=== PATIENT | male | born 1975 | race Caucasian/White ===

== ENCOUNTER 2019-12-13 17:35 | Inpatient (IN) | payer OTHER ==
[2019-12-13 17:58] VITALS: BMI 32.5
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
[2019-12-13] MEDS ORDERED: hydrOXYzine PAMOATE 25 MG CAPSULE (FP) PO PRN (18:58)
[2019-12-13] MEDS ORDERED: MAGNESIUM CITRATE 300 ML BOTTLE PO PRN (18:58)
[2019-12-13] MEDS ORDERED: MELATONIN 5 MG TABLETS PO PRN (18:58)
[2019-12-13] MEDS ORDERED: ACETAMINOPHEN 325 MG TABLET (FP) PO PRN ×2 (18:58)
[2019-12-13] MEDS ORDERED: METHOCARBAMOL 500 MG TABLET PO PRN (18:58)
[2019-12-13] MEDS ORDERED: PROCHLORPERAZINE MALEATE 5 MG TABLET PO PRN (18:58)
[2019-12-13] MEDS ORDERED: BISMUTH SUBSALICYLATE 524 MG/30 ML UD PO PRN (18:58)
[2019-12-13] MEDS ORDERED: MAGNESIUM HYDROX 2400MG/30ML ORAL SUSPENSION 30 ML CUP PO PRN (18:58)
[2019-12-13] MEDS ORDERED: MENTHOL/PHENOL 1 EACH UD MM PRN (18:58)
[2019-12-13] MEDS ORDERED: ALBUTEROL SO4 2.5/IPRATROPIUM 0.5 INH SOL 3 ML VIAL.NEB. NEB PRN (18:58)
[2019-12-13] MEDS ORDERED: MAG HYDROX/AL HYDROX/SIMETH 30 ML UNIT-DOSE CUP PO PRN (18:58)
[2019-12-13] MEDS ORDERED: NICOTINE POLACRILEX 2 MG GUM BUC PRN (18:58)
[2019-12-13] MEDS ORDERED: ALBUTEROL SO4 HFA INHALER IH PRN (18:58)
[2019-12-13] MEDS ORDERED: chlordiazePOXIDE HCL 10 MG CAPSULE PO PRN (19:00)
[2019-12-13] MEDS ORDERED: TRIMETHOBENZAMIDE HCL 200MG/2ML INJ IM PRN (19:03)
[2019-12-13] MEDS ORDERED: chlordiazePOXIDE HCL 25 MG CAPSULE PO ONE (19:30)
[2019-12-13] MEDS: THIAMINE HCL 100 MG TABLET (FP) PO SCH (22:46)
[2019-12-13] MEDS: chlordiazePOXIDE HCL 25 MG CAPSULE PO SCH (22:46)
[2019-12-13] MEDS: SULFAMETHOXAZOLE/TRIMETHOPRIM 800MG/160MG D.S. TABLET PO SCH (22:46)
[2019-12-14] MEDS: chlordiazePOXIDE HCL 25 MG CAPSULE PO SCH ×3 (05:41→22:08)
[2019-12-14] MEDS: PRENATAL VITAMINS W/ FOLIC ACID TABLET (FP) PO SCH (10:08)
[2019-12-14] MEDS: SULFAMETHOXAZOLE/TRIMETHOPRIM 800MG/160MG D.S. TABLET PO SCH ×2 (10:08→22:09)
[2019-12-14 10:44] LABS: HEMATOCRIT 39.4 % (35.4-49); HEMOGLOBIN 12.6 GM/dL (11.7-16.9); MCH 27.3 pg (25.7-33.7); MEAN CELL VOLUME 85.3 fl (80-96); MEAN PLT VOLUME 9.8 fl (7.5-11.1); PLATELET COUNT 210 K/MM3 (134-434); RBC 4.61 M/mm3 (4.00-5.60); RDW 14.9 % (11.9-15.9); WHITE BLOOD COUNT 5.7 K/mm3 (4.0-10.0)
[2019-12-14] MEDS ORDERED: METHADONE HCL 10 MG TABLET PO ONE (10:49)
[2019-12-14 10:52] LABS: ALBUMIN 3.5 g/dl (3.4-5.0); BILIRUBIN,TOTAL 0.8 mg/dL (0.2-1); BLOOD UREA NITROGEN 18.2 mg/dL (7-18); CALCIUM 9.2 mg/dL (8.5-10.1); POTASSIUM 3.8 mmol/L (3.5-5.1); TOT PROT 7.4 g/dl (6.4-8.2)
--- NOTE | 2019-12-14 12:01 | PN ---
[facility] CIWA - CIWA Score Nausea/Vomitin-Mild Nausea/No Vomiting Muscle Tremors: 3 Anxiety: 3 Agitation: 2 Paroxysmal Sweats: 2 Orientation: 0-Oriented Tacttile Disturbances: 0-None Auditory Disturbances: 0-None Visual Disturbances: 1-Very Mild Sensitivity Headache: 0-None Present CIWA-Ar Total Score: 12 S Progress Note (SOAP) Subjective: 44 years old male admitted on 12/13/19 for alcohol and benzo withdrawal sx management treating with librium detox regimen reports in methadone program taking 140 mg po daily patient did not have methadone bottle with him upon admission program closed today and tomorrow holiday dosage can not be verified at this time offer methadone 30 mg po due to positive opioid and methadone in urine Objective: 12/14/19 12:00 Vital Signs Temperature 97.2 F L 12/14/19 09:06 Pulse Rate 84 12/14/19 09:06 Respiratory Rate 18 12/14/19 09:06 Blood Pressure 116/74 12/14/19 09:06 O2 Sat by Pulse Oximetry (%) Laboratory Last Values WBC 5.7 K/mm3 (4.0-10.0) 12/14/19 07:20 RBC 4.61 M/mm3 (4.00-5.60) 12/14/19 07:20 Hgb 12.6 GM/dL (11.7-16.9) 12/14/19 07:20 Hct 39.4 % (35.4-49) 12/14/19 07:20 MCV 85.3 fl (80-96) 12/14/19 07:20 MCH 27.3 pg (25.7-33.7) 12/14/19 07:20 MCHC 32.0 g/dl (32.0-35.9) 12/14/19 07:20 RDW 14.9 % (11.9-15.9) 12/14/19 07:20 Plt Count 210 K/MM3 (134-434) 12/14/19 07:20 MPV 9.8 fl (7.5-11.1) 12/14/19 07:20 Sodium 139 mmol/L (136-145) 12/14/19 07:20 Potassium 3.8 mmol/L (3.5-5.1) 12/14/19 07:20 Chloride 106 mmol/L (98-107) 12/14/19 07:20 Carbon Dioxide 28 mmol/L (21-32) 12/14/19 07:20 Anion Gap 5 MMOL/L (8-16) L 12/14/19 07:20 BUN 18.2 mg/dL (7-18) H 12/14/19 07:20 Creatinine 1.0 mg/dL (0.55-1.3) 12/14/19 07:20 Est GFR (CKD-EPI)AfAm 104.15 12/14/19 07:20 Est GFR (CKD-EPI)NonAf 89.86 12/14/19 07:20 Random Glucose 117 mg/dL (74-106) H 12/14/19 07:20 Calcium 9.2 mg/dL (8.5-10.1) 12/14/19 07:20 Total Bilirubin 0.8 mg/dL (0.2-1) 12/14/19 07:20 AST 22 U/L (15-37) 12/14/19 07:20 ALT 29 U/L (13-61) 12/14/19 07:20 Alkaline Phosphatase 114 U/L (45-117) 12/14/19 07:20 Total Protein 7.4 g/dl (6.4-8.2) 12/14/19 07:20 Albumin 3.5 g/dl (3.4-5.0) 12/14/19 07:20 RPR Titer Nonreactive (NONREACTIVE) 12/14/19 07:20 lab noted Assessment: 12/14/19 12:01 alcohol and benzo withdrawal Plan: librium regimen
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
[2019-12-14] MEDS: IBUPROFEN 400 MG TABLET (FP) PO PRN (13:45)
[2019-12-14] MEDS: THIAMINE HCL 100 MG TABLET (FP) PO SCH (22:08)
[2019-12-14] MEDS: QUEtiapine FUMARATE 100 MG TABLET (FP) PO SCH (22:08)
[2019-12-15] MEDS: chlordiazePOXIDE HCL 10 MG CAPSULE PO SCH ×3 (05:22→22:18)
[2019-12-15] MEDS ORDERED: METHADONE HCL 10 MG TABLET PO ONE (10:00)
--- NOTE | 2019-12-15 10:03 | PN ---
S CIWA - CIWA Score Nausea/Vomitin-No Nausea/No Vomiting Muscle Tremors: 1-None Visible, but [place] Anxiety: 2 Agitation: 1-Slight > Activity Paroxysmal Sweats: 2 Orientation: 0-Oriented Tacttile Disturbances: 0-None Auditory Disturbances: 0-None Visual Disturbances: 1-Very Mild Sensitivity Headache: 0-None Present CIWA-Ar Total Score: 7 [facility] Progress Note (SOAP) Subjective: 44 years old male admitted on 12/13/19 for alcohol and benzo withdrawal sx management treasting with librium detox regimen reports in methadone program taking 140mg po daily patient has no take home bottles of methadone with him upon admission methadone program closed due to the holiday positive urine for methadone upon admission methadone 30mg po one dose now Objective: 12/15/19 10:02 Vital Signs Temperature 96.7 F L 12/15/19 09:20 Pulse Rate 93 H 12/15/19 09:20 Respiratory Rate 20 12/15/19 09:20 Blood Pressure 116/74 12/15/19 09:20 O2 Sat by Pulse Oximetry (%) Laboratory Last Values WBC 5.7 K/mm3 (4.0-10.0) 12/14/19 07:20 RBC 4.61 M/mm3 (4.00-5.60) 12/14/19 07:20 Hgb 12.6 GM/dL (11.7-16.9) 12/14/19 07:20 Hct 39.4 % (35.4-49) 12/14/19 07:20 MCV 85.3 fl (80-96) 12/14/19 07:20 MCH 27.3 pg (25.7-33.7) 12/14/19 07:20 MCHC 32.0 g/dl (32.0-35.9) 12/14/19 07:20 RDW 14.9 % (11.9-15.9) 12/14/19 07:20 Plt Count 210 K/MM3 (134-434) 12/14/19 07:20 MPV 9.8 fl (7.5-11.1) 12/14/19 07:20 Sodium 139 mmol/L (136-145) 12/14/19 07:20 Potassium 3.8 mmol/L (3.5-5.1) 12/14/19 07:20 Chloride 106 mmol/L (98-107) 12/14/19 07:20 Carbon Dioxide 28 mmol/L (21-32) 12/14/19 07:20 Anion Gap 5 MMOL/L (8-16) L 12/14/19 07:20 BUN 18.2 mg/dL (7-18) H 12/14/19 07:20 Creatinine 1.0 mg/dL (0.55-1.3) 12/14/19 07:20 Est GFR (CKD-EPI)AfAm 104.15 12/14/19 07:20 Est GFR (CKD-EPI)NonAf 89.86 12/14/19 07:20 Random Glucose 117 mg/dL (74-106) H 12/14/19 07:20 Calcium 9.2 mg/dL (8.5-10.1) 12/14/19 07:20 Total Bilirubin 0.8 mg/dL (0.2-1) 12/14/19 07:20 AST 22 U/L (15-37) 12/14/19 07:20 ALT 29 U/L (13-61) 12/14/19 07:20 Alkaline Phosphatase 114 U/L (45-117) 12/14/19 07:20 Total Protein 7.4 g/dl (6.4-8.2) 12/14/19 07:20 Albumin 3.5 g/dl (3.4-5.0) 12/14/19 07:20 RPR Titer Nonreactive (NONREACTIVE) 12/14/19 07:20 lab noted Assessment: 12/15/19 10:02 alcohol and benzo withdrawal Plan: librium regimen patient prefers returning to methadone program tomorrow to received methadone 140mg po
[2019-12-15] MEDS: PRENATAL VITAMINS W/ FOLIC ACID TABLET (FP) PO SCH (10:08)
[2019-12-15] MEDS: SULFAMETHOXAZOLE/TRIMETHOPRIM 800MG/160MG D.S. TABLET PO SCH ×2 (10:08→22:19)
[2019-12-15] MEDS: IBUPROFEN 400 MG TABLET (FP) PO PRN (10:10)
[2019-12-15] MEDS: THIAMINE HCL 100 MG TABLET (FP) PO SCH (22:18)
[2019-12-15] MEDS: QUEtiapine FUMARATE 100 MG TABLET (FP) PO SCH (22:19)
[2019-12-16] MEDS ORDERED: chlordiazePOXIDE HCL 10 MG CAPSULE PO ONE (05:00)
[2019-12-16 09:09] VITALS: BP 111/75; PULSE 104; TEMP 96.5
[2019-12-16] MEDS ORDERED: METHADONE HCL 10 MG TABLET ONE (09:10)
[2019-12-16] MEDS ORDERED: METHADONE HCL 40 MG DISPERSABLE TABLET ONE (09:12)
[2019-12-16] MEDS ORDERED: METHADONE 120 MG, METHADONE 20 MG PO ONE (10:00)
[2019-12-16] MEDS ORDERED: METHADONE HCL 10 MG TABLET PO ONE (10:00)
[2019-12-16] MEDS: SULFAMETHOXAZOLE/TRIMETHOPRIM 800MG/160MG D.S. TABLET PO SCH (10:09)
[2019-12-16] MEDS: PRENATAL VITAMINS W/ FOLIC ACID TABLET (FP) PO SCH (10:09)
--- NOTE | 2019-12-16 14:01 | DS ---
[facility] Detox Discharge Summary Admission Date: 12/13/19 Discharge Date: 12/16/19 - History Present History: Alcohol Dependence, Sedative Dependence Additional Comments: 44 years old male admitted on 12/13/19 for alcohol and benzo withdrawal sx management treated with librium detox regimen patient has completed the librium regimen and tolerated well alert oriented x 3 seen by psychiatrist resume seroquel respiratory clear lungs bilaterally on auscultation extremities full range of motion skin warm and dry - Physical Exam Results Vital Signs: Vital Signs Temperature 96.5 F L 12/16/19 09:08 Pulse Rate 104 H 12/16/19 09:08 Respiratory Rate 18 12/16/19 09:08 Blood Pressure 111/75 12/16/19 09:08 O2 Sat by Pulse Oximetry (%) Pertinent Admission Physical Exam Findings: alcohol and benzo withdrawal Laboratory Last Values WBC 5.7 K/mm3 (4.0-10.0) 12/14/19 07:20 RBC 4.61 M/mm3 (4.00-5.60) 12/14/19 07:20 Hgb 12.6 GM/dL (11.7-16.9) 12/14/19 07:20 Hct 39.4 % (35.4-49) 12/14/19 07:20 MCV 85.3 fl (80-96) 12/14/19 07:20 MCH 27.3 pg (25.7-33.7) 12/14/19 07:20 MCHC 32.0 g/dl (32.0-35.9) 12/14/19 07:20 RDW 14.9 % (11.9-15.9) 12/14/19 07:20 Plt Count 210 K/MM3 (134-434) 12/14/19 07:20 MPV 9.8 fl (7.5-11.1) 12/14/19 07:20 Sodium 139 mmol/L (136-145) 12/14/19 07:20 Potassium 3.8 mmol/L (3.5-5.1) 12/14/19 07:20 Chloride 106 mmol/L (98-107) 12/14/19 07:20 Carbon Dioxide 28 mmol/L (21-32) 12/14/19 07:20 Anion Gap 5 MMOL/L (8-16) L 01/19/20 07:20 BUN 18.2 mg/dL (7-18) H 12/14/19 07:20 Creatinine 1.0 mg/dL (0.55-1.3) 12/14/19 07:20 Est GFR (CKD-EPI)AfAm 104.15 12/14/19 07:20 Est GFR (CKD-EPI)NonAf 89.86 12/14/19 07:20 Random Glucose 117 mg/dL (74-106) H 12/14/19 07:20 Calcium 9.2 mg/dL (8.5-10.1) 12/14/19 07:20 Total Bilirubin 0.8 mg/dL (0.2-1) 12/14/19 07:20 AST 22 U/L (15-37) 12/14/19 07:20 ALT 29 U/L (13-61) 12/14/19 07:20 Alkaline Phosphatase 114 U/L (45-117) 12/14/19 07:20 Total Protein 7.4 g/dl (6.4-8.2) 12/14/19 07:20 Albumin 3.5 g/dl (3.4-5.0) 12/14/19 07:20 RPR Titer Nonreactive (NONREACTIVE) 12/14/19 07:20 lab noted - Treatment Hospital Course: Detox Protocol Followed, Detoxed Safely, Responded well, Discharged Condition Good, Rehab Referral Accepted Patient has Accepted [facility] - Medication Discharge Medications: Ambulatory Orders Duloxetine [Cymbalta -] 60 mg PO DAILY 10/19/12 Zolpidem Tartrate [Ambien] 10 mg PO ONCE 10/19/12 Quetiapine Fumarate [Seroquel -] 300 mg PO HS #0 tablet 10/21/12 Albuterol Sulfate Inhaler - [Ventolin HFA Inhaler -] 2 inh PO Q6H PRN 12/13/19 Quetiapine Fumarate [Seroquel -] 100 mg PO HS 12/14/19 Naloxone HCl [Narcan] 4 mg NS ASDIR PRN #1 spray 12/15/19 - Diagnosis (1) Alcohol dependence with withdrawal, uncomplicated Status: Acute (2) Sedative, hypnotic or anxiolytic dependence, uncomplicated Status: Acute (3) Asthma Status: Chronic (4) Hepatitis C carrier Status: Chronic - AMA Did Patient Leave Against Medical Advice: No CIWA Score - CIWA Score Nausea/Vomitin-No Nausea/No Vomiting Muscle Tremors: 1-None Visible, but [place] Anxiety: 1-Mildly Anxious Agitation: 0-Normal Activity Paroxysmal Sweats: 1-Minimal Palms Moist Orientation: 0-Oriented Tacttile Disturbances: 0-None Auditory Disturbances: 0-None Visual Disturbances: 0-None Headache: 0-None Present CIWA-Ar Total Score: 3
[2019-12-17] MEDS ORDERED: METHADONE HCL 10 MG TABLET PO SCH (06:00)
[2019-12-17] MEDS ORDERED: METHADONE 120 MG, METHADONE 20 MG PO SCH (06:00)
== END 2019-12-16 12:42 | disposition other institution (70) | DRG 773 ==
LOC: YASAS 17:35 → Y3N 19:06
PROVIDERS: ADMIT Allergy & Immunology; ATTEND Allergy & Immunology
PROC: HZ2ZZZZ Detoxification Services for Substance Abuse Treatment (ICD-10-PCS; principal; 2019-12-13)
DX: F10.230 Alcohol dependence with withdrawal, uncomplicated (principal); F13.230 Sedative, hypnotic or anxiolytic dependence with withdrawal, uncomplicated; F11.20 Opioid dependence, uncomplicated; F17.210 Nicotine dependence, cigarettes, uncomplicated; F25.9 Schizoaffective disorder, unspecified; F32.9 Major depressive disorder, single episode, unspecified; J45.909 Unspecified asthma, uncomplicated; B18.2 Chronic viral hepatitis C; Z86.69 Personal history of other diseases of the nervous system and sense organs
CPT/HCPCS: 36415; 80053; 85027; 86593

== ENCOUNTER 2019-12-16 12:32 | Inpatient (IN) | payer OTHER ==
[2019-12-16] MEDS ORDERED: MAGNESIUM HYDROX 2400MG/30ML ORAL SUSPENSION 30 ML CUP PO PRN (12:57)
[2019-12-16] MEDS ORDERED: guaiFENesin 200 MG/10 ML 10 ML UNIT-DOSE CUPS PO PRN (12:57)
[2019-12-16] MEDS ORDERED: hydrOXYzine PAMOATE 50 MG CAPSULE (FP) PO PRN (12:57)
[2019-12-16] MEDS ORDERED: LOPERAMIDE HCL 2 MG CAPSULE PO PRN (12:57)
[2019-12-16] MEDS ORDERED: P-EPHED 60MG/TRIPROLIDI 2.5MG TABLET PO PRN (12:57)
[2019-12-16] MEDS ORDERED: MAGNESIUM CITRATE 300 ML BOTTLE PO PRN (12:57)
--- NOTE | 2019-12-16 13:01 | HP ---
[facility] Rehab Assess/Revision - Admission History Admitted to Rehab from: [address] Date of Admission to Rehab: 12/16/19 - Vital signs Vital Signs: Vital Signs - 24 hr 12/16/19 12:46 Temperature 98.1 F Pulse Rate 106 H Respiratory 20 Rate Blood Pressure 118/75 - Findings Detox History & Physical reviewed: Yes Concur with findings: Yes Comments/Additional Findings: Pt is a 44 y/o male with a hx of alcohol,benzo, heroin i.v, cocaine dependence and on Methadone maintenance admitted to rehab from [address] [place] [address]. PMHx:Acid Reflux;Asthma;withdrawal seizures hx;Hep C. Psych Hx:Depression(on meds). Inpatient Rehab Admission - Rehab Decision to Admit Inpatient rehab admission?: Yes - Initial Determination Are CD services needed?: Yes Free of communicable disease: Yes Not in need of hospitalization: Yes - Rehab Admission Criteria Previous failed treatment: Yes Poor recovery environment: Yes Comorbidities: Yes Lacks judgement: Yes Patient is meeting Inpatient Rehab admission criteria:: Yes
--- NOTE | 2019-12-16 13:06 | PN ---
[facility] Progress Note Note: Pt c/o stomach cramps and headache. Pt reports had normal BM today and had his lunch before arrival. S/P detox from alcohol and benzos and arrived to the unit a few minutes ago. Reports he has a hx of acid reflux and takes Zantac 150 mg twice daily. Last taken the day of admission to detox 12/13/19. Vital Signs - 24 hr 12/16/19 12:46 Temperature 98.1 F Pulse Rate 106 H Respiratory 20 Rate Blood Pressure 118/75 Alert o x 3, fatigue and wants to lay down oob ambulating with steady gait abdomen;soft, +bs,nd,slight tenderness to epigastric area. extremities/skin;no edema;tattoos on left lower extremity A/P Hx GERD Asthma Protonix 40 mg po daily, first dose now.
[2019-12-16] MEDS ORDERED: PANTOPRAZOLE 40 MG TABLET PO ONE (13:30)
[2019-12-16] MEDS ORDERED: ALBUTEROL SO4 HFA INHALER IH PRN (13:57)
[2019-12-16] MEDS ORDERED: PNEUMOC 13-VAL CONJ-DIP CRM/PF 0.5 ML DISP.SYRIN IM ONE (14:17)
[2019-12-16] MEDS: IBUPROFEN 400 MG TABLET (FP) PO PRN (14:22)
[2019-12-16] MEDS: NICOTINE 21 MG/24 HOURS TOPICAL PATCH TD SCH (14:23)
[2019-12-16] MEDS: MAG HYDROX/AL HYDROX/SIMETH 30 ML UNIT-DOSE CUP PO PRN (18:35)
[2019-12-16] MEDS: THIAMINE HCL 100 MG TABLET (FP) PO SCH (21:07)
[2019-12-16] MEDS: SULFAMETHOXAZOLE/TRIMETHOPRIM 800MG/160MG D.S. TABLET PO SCH (21:07)
[2019-12-16] MEDS: QUEtiapine FUMARATE 100 MG TABLET (FP) PO SCH (21:07)
[2019-12-16] MEDS ORDERED: MELATONIN 5 MG TABLETS PO PRN (22:00)
[2019-12-17] MEDS ORDERED: METHADONE HCL 40 MG DISPERSABLE TABLET ONE (05:25)
[2019-12-17] MEDS ORDERED: METHADONE HCL 10 MG TABLET ONE (05:25)
[2019-12-17] MEDS ORDERED: METHADONE HCL 10 MG TABLET PO SCH (06:00)
[2019-12-17] MEDS: METHADONE 120 MG, METHADONE 20 MG PO SCH (06:08)
[2019-12-17] MEDS: SULFAMETHOXAZOLE/TRIMETHOPRIM 800MG/160MG D.S. TABLET PO SCH ×2 (10:02→21:02)
[2019-12-17] MEDS: IBUPROFEN 400 MG TABLET (FP) PO PRN (10:02)
[2019-12-17] MEDS: PANTOPRAZOLE 40 MG TABLET PO SCH (10:02)
[2019-12-17] MEDS: PRENATAL VITAMINS W/ FOLIC ACID TABLET (FP) PO SCH (10:02)
[2019-12-17] MEDS: NICOTINE 21 MG/24 HOURS TOPICAL PATCH TD SCH (10:04)
[2019-12-17] MEDS: NICOTINE POLACRILEX 4 MG GUM BUC PRN (10:04)
[2019-12-17] MEDS ORDERED: PNEUMOCOCCAL 23 VACCINE 0.5 ML VIAL IM ONE (12:00)
[2019-12-17] MEDS: MAG HYDROX/AL HYDROX/SIMETH 30 ML UNIT-DOSE CUP PO PRN ×2 (12:43→17:36)
--- NOTE | 2019-12-17 12:45 | PN ---
[facility] Progress Note Note: Pt c/o itchy,dry feet, bilateral. Vital Signs - 24 hr 12/16/19 12/17/19 12/17/19 12:46 00:57 03:30 Temperature 98.1 F Pulse Rate 106 H Respiratory 20 18 18 Rate Blood Pressure 118/75 12/17/19 06:44 Temperature 97.8 F Pulse Rate 81 Respiratory 18 Rate Blood Pressure 111/67 Alert o x 3, denies s/h/i nad oob ambulating with steady gait. extremities/skin:no redness or edema, both soles of feet dry,scaly. A/P Tinea Pedis Tinactin Cream apply to both feet BID.
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
[2019-12-17] MEDS ORDERED: TOLNAFTATE 1% CREAM 15 GM TUBE TP ONE (14:00)
[2019-12-17] MEDS: QUEtiapine FUMARATE 100 MG TABLET (FP) PO SCH (21:02)
[2019-12-17] MEDS: THIAMINE HCL 100 MG TABLET (FP) PO SCH (21:02)
[2019-12-17] MEDS: TOLNAFTATE 1% CREAM 15 GM TUBE TP SCH (21:03)
[2019-12-18] MEDS ORDERED: METHADONE HCL 10 MG TABLET ONE (04:17)
[2019-12-18] MEDS ORDERED: METHADONE HCL 40 MG DISPERSABLE TABLET ONE (04:17)
[2019-12-18] MEDS: METHADONE 120 MG, METHADONE 20 MG PO SCH (06:18)
[2019-12-18] MEDS: NICOTINE POLACRILEX 4 MG GUM BUC PRN (09:40)
[2019-12-18] MEDS: SULFAMETHOXAZOLE/TRIMETHOPRIM 800MG/160MG D.S. TABLET PO SCH ×2 (09:40→21:02)
[2019-12-18] MEDS: PANTOPRAZOLE 40 MG TABLET PO SCH (09:40)
[2019-12-18] MEDS: NICOTINE 21 MG/24 HOURS TOPICAL PATCH TD SCH (09:40)
[2019-12-18] MEDS: PRENATAL VITAMINS W/ FOLIC ACID TABLET (FP) PO SCH (09:40)
[2019-12-18] MEDS: TOLNAFTATE 1% CREAM 15 GM TUBE TP SCH ×2 (09:40→21:03)
[2019-12-18] MEDS: IBUPROFEN 400 MG TABLET (FP) PO PRN (09:41)
--- NOTE | 2019-12-18 10:12 | PN ---
S Progress Note (SOAP) Subjective: pt c/o pain and swelling to both lower legs x 1 day. Denies any recent truama to area but however, reports teenage years fall injury on glass on his right knee while scaling a fence. Objective: 12/18/19 10:12 Vital Signs - 24 hr 12/18/19 12/18/19 03:30 06:54 Temperature 97.5 F L Pulse Rate 97 H Respiratory 18 18 Rate Blood Pressure 120/74 Alert o x 3 oob ambulating with steady gait extremities/skin:non pitting edema to both LE below knee down. Skin tightness with no redness/discoloration/warmth or open skin. Slight generalized pain on palpation to each LE below knees down. 12/18/19 10:21 Assessment: 12/18/19 10:17 Generalized LE edema,bilateral Muscle pain Plan: SOSA stockings Elevate both legs while in bed and prn Robaxin 500 mg po TID PRN for muscle cramps Monitor pt's symptoms and follow up if need to evaluate in ER.
[2019-12-18] MEDS: ACETAMINOPHEN 325 MG TABLET (FP) PO PRN (13:13)
[2019-12-18] MEDS: METHOCARBAMOL 500 MG TABLET PO PRN ×2 (13:13→21:02)
[2019-12-18] MEDS: QUEtiapine FUMARATE 100 MG TABLET (FP) PO SCH (21:02)
[2019-12-18] MEDS: THIAMINE HCL 100 MG TABLET (FP) PO SCH (21:02)
[2019-12-19] MEDS ORDERED: METHADONE HCL 40 MG DISPERSABLE TABLET ONE (05:41)
[2019-12-19] MEDS ORDERED: METHADONE HCL 10 MG TABLET ONE (05:41)
[2019-12-19] MEDS: METHADONE 120 MG, METHADONE 20 MG PO SCH (06:02)
[2019-12-19] MEDS: PANTOPRAZOLE 40 MG TABLET PO SCH (10:06)
[2019-12-19] MEDS: TOLNAFTATE 1% CREAM 15 GM TUBE TP SCH ×2 (10:06→21:02)
[2019-12-19] MEDS: NICOTINE 21 MG/24 HOURS TOPICAL PATCH TD SCH (10:06)
[2019-12-19] MEDS: PRENATAL VITAMINS W/ FOLIC ACID TABLET (FP) PO SCH (10:06)
[2019-12-19] MEDS: SULFAMETHOXAZOLE/TRIMETHOPRIM 800MG/160MG D.S. TABLET PO SCH ×2 (10:06→21:00)
[2019-12-19] MEDS: IBUPROFEN 400 MG TABLET (FP) PO PRN (10:07)
--- NOTE | 2019-12-19 11:31 | PN ---
[facility] Progress Note Note: Pt reports he takes Gabapentin 400 mg po twice a day for seizures. Pt states he was on Dilantin and was not good for him and was changed to Keppra and it made his sugar high and both were stopped in [facility]. Pt is a poor historian and states he does not know details but will call his who knows and will give the information on his meds from the bottles at home as well as the pharmacy information. Pt called his this morning and he was given a pharmacy named Pharmacy on [address] [id number]. . This check writer called and spoke to the pharmacist who reluctantly states that this patient has not been in to the pharmacy since 2017. Last time there reported to be about April to June of 2017 and no record of any seizure medication(s) in his pharmacy system. Pt called again just before noon today and no response. Pt now informing provider gaxiola just got a new doctor(he gave as Jessie Vides(as per pt's spelling) on [place], [place] but does not know his phone number or any other information)who has not prescribed this Gabapentin yet to him. Meanwhile, pt unable to give staff information of current prescriber or pharmacy for verification of medication and dose. Vital Signs - 24 hr 12/19/19 12/19/19 12/19/19 00:30 03:30 06:51 Temperature 97.2 F L Pulse Rate 100 H Respiratory 20 18 18 Rate Blood Pressure 124/77 Alert o x 3 nad oob ambulating with steady gait Maintain safety seizure precautions follow up with verification of pt's medication.
[2019-12-19] MEDS: QUEtiapine FUMARATE 100 MG TABLET (FP) PO SCH (21:00)
[2019-12-19] MEDS: BUDESONIDE/FORMETEROL FUMARATE 80/4.5 mcg INHALER IH SCH (21:01)
[2019-12-19] MEDS: THIAMINE HCL 100 MG TABLET (FP) PO SCH (21:02)
[2019-12-20] MEDS ORDERED: METHADONE HCL 10 MG TABLET ONE (05:13)
[2019-12-20] MEDS ORDERED: METHADONE HCL 40 MG DISPERSABLE TABLET ONE (05:14)
[2019-12-20] MEDS: METHADONE 120 MG, METHADONE 20 MG PO SCH (06:25)
[2019-12-20] MEDS: PANTOPRAZOLE 40 MG TABLET PO SCH (09:30)
[2019-12-20] MEDS: TOLNAFTATE 1% CREAM 15 GM TUBE TP SCH ×2 (09:30→21:22)
[2019-12-20] MEDS: NICOTINE 21 MG/24 HOURS TOPICAL PATCH TD SCH (09:30)
[2019-12-20] MEDS: ENALAPRIL MALEATE 10 MG TABLET (FP) PO SCH (09:30)
[2019-12-20] MEDS: SULFAMETHOXAZOLE/TRIMETHOPRIM 800MG/160MG D.S. TABLET PO SCH (09:30)
[2019-12-20] MEDS: PRENATAL VITAMINS W/ FOLIC ACID TABLET (FP) PO SCH (09:30)
[2019-12-20] MEDS: BUDESONIDE/FORMETEROL FUMARATE 80/4.5 mcg INHALER IH SCH ×2 (09:30→21:20)
[2019-12-20] MEDS: IBUPROFEN 400 MG TABLET (FP) PO PRN (09:31)
[2019-12-20] MEDS: THIAMINE HCL 100 MG TABLET (FP) PO SCH (21:20)
[2019-12-20] MEDS: QUEtiapine FUMARATE 100 MG TABLET (FP) PO SCH (21:20)
[2019-12-21] MEDS ORDERED: METHADONE HCL 40 MG DISPERSABLE TABLET ONE (04:11)
[2019-12-21] MEDS ORDERED: METHADONE HCL 10 MG TABLET ONE (04:11)
[2019-12-21] MEDS: METHADONE 120 MG, METHADONE 20 MG PO SCH (06:27)
[2019-12-21] MEDS: PANTOPRAZOLE 40 MG TABLET PO SCH (09:54)
[2019-12-21] MEDS: NICOTINE POLACRILEX 4 MG GUM BUC PRN (09:54)
[2019-12-21] MEDS: ENALAPRIL MALEATE 10 MG TABLET (FP) PO SCH (09:55)
[2019-12-21] MEDS: BUDESONIDE/FORMETEROL FUMARATE 80/4.5 mcg INHALER IH SCH ×2 (09:55→21:03)
[2019-12-21] MEDS: PRENATAL VITAMINS W/ FOLIC ACID TABLET (FP) PO SCH (09:55)
[2019-12-21] MEDS: NICOTINE 21 MG/24 HOURS TOPICAL PATCH TD SCH (09:56)
[2019-12-21] MEDS: TOLNAFTATE 1% CREAM 15 GM TUBE TP SCH ×2 (09:57→21:10)
[2019-12-21] MEDS: QUEtiapine FUMARATE 100 MG TABLET (FP) PO SCH (21:03)
[2019-12-21] MEDS: THIAMINE HCL 100 MG TABLET (FP) PO SCH (21:03)
[2019-12-21] MEDS: MENTHOL/PHENOL 1 EACH UD MM PRN (21:04)
[2019-12-22] MEDS ORDERED: METHADONE HCL 40 MG DISPERSABLE TABLET ONE (04:13)
[2019-12-22] MEDS ORDERED: METHADONE HCL 10 MG TABLET ONE (04:13)
[2019-12-22] MEDS: METHADONE 120 MG, METHADONE 20 MG PO SCH (05:56)
[2019-12-22] MEDS: PRENATAL VITAMINS W/ FOLIC ACID TABLET (FP) PO SCH (10:06)
[2019-12-22] MEDS: BUDESONIDE/FORMETEROL FUMARATE 80/4.5 mcg INHALER IH SCH ×2 (10:06→21:01)
[2019-12-22] MEDS: NICOTINE 21 MG/24 HOURS TOPICAL PATCH TD SCH (10:06)
[2019-12-22] MEDS: PANTOPRAZOLE 40 MG TABLET PO SCH (10:06)
[2019-12-22] MEDS: ENALAPRIL MALEATE 10 MG TABLET (FP) PO SCH (10:06)
[2019-12-22] MEDS: TOLNAFTATE 1% CREAM 15 GM TUBE TP SCH ×2 (10:07→21:02)
[2019-12-22] MEDS: ACETAMINOPHEN 325 MG TABLET (FP) PO PRN (10:09)
[2019-12-22] MEDS: MENTHOL/PHENOL 1 EACH UD MM PRN (10:10)
[2019-12-22] MEDS: NICOTINE POLACRILEX 4 MG GUM BUC PRN (10:10)
--- NOTE | 2019-12-22 14:38 | PN ---
[facility] Progress Note Note: Patient is scheduled for discharge tomorrow. Scriptfor 30 days of Seroquel 100 mg/hs will be electronically transmitted to [facility] at [facility], [address] [place] [id number]
--- NOTE | 2019-12-22 15:37 | DS ---
[facility] Rehab Discharge Summary - [facility] Rehab Discharge Summary Admission Date: 12/16/19 Discharge Date: 12/23/19 - History Present History: Alcohol dependence, Cocaine dependence, MMTP, Opioid dependence , Sedative dependence Additional Comments: Pt is a 44 y/o male with a hx of DAMASO admitted to rehab and scheduled for discharge on 12/23/19. Pt has been Pertinent Past History: Asthma COPD HTN(noncompliant with meds) DM(noncompliant with meds) Hep C Withdrawal seizure hx(per patient-no med) Schizoaffective Disorder - Discharge Physical Exam Vital Signs: Vital Signs Temperature 98.0 F 12/22/19 06:54 Pulse Rate 95 H 12/22/19 06:54 Respiratory Rate 18 12/22/19 06:54 Blood Pressure 111/67 12/22/19 06:54 O2 Sat by Pulse Oximetry (%) Alert o x 3,denies s/h/i nad oob ambulating with steady gait cardiac:s1 s2,rrr nad oob ambulating with steady gait abdomen:+bs,soft,nt,nd extremities/skin:no edema;skin intact. LE Sores resolved. Pertinent Admission Physical Exam Findings: Laboratory Tests 12/19/19 14:20 POC Glucometer 132 - Treatment Discharge Condition: Discharge condition good Hospital Course: Rehabilitated safely CD aftercare referral accepted. Pt participated in group and individual activities while in treatment. - Medication Discharge Medications: Ambulatory Orders Duloxetine [Cymbalta -] 60 mg PO DAILY 10/19/12 Zolpidem Tartrate [Ambien] 10 mg PO ONCE 10/19/12 Quetiapine Fumarate [Seroquel -] 300 mg PO HS #0 tablet 10/21/12 Albuterol Sulfate Inhaler - [Ventolin HFA Inhaler -] 2 inh PO Q6H PRN 12/13/19 Naloxone HCl [Narcan] 4 mg NS ASDIR PRN #1 spray 12/15/19 Enalapril Maleate [Vasotec] 20 tablet PO AM 12/19/19 SYMBICORT 80/4.5mcg - 2 puff IH BID 12/19/19 metFORMIN HCL 500 mg PO BIDAC 12/19/19 Quetiapine Fumarate [Seroquel -] 100 mg PO HS #30 tablet 12/22/19 - Medication-Assisted Treatment (MAT) Medication-Assisted Treatment (MAT): No - Discharge Instructions Diet, activity, other medical instructions: Diet:JOANN/NCS Activity:oob ad sandra Other medical instructions:follow up with Cd aftercare/ your MMTP for CD aftercare as recommended and scheduled. Follow up with your primary care provider Dr. Linda Nguyen for medical management within 1 week after discharge. Primary care doctor, Dr. Linda Nguyen [address] [place] [address]. Ph: . - Diagnosis (1) Alcohol dependence Status: Chronic (2) Cocaine dependence Status: Chronic Qualifiers: Substance use status: uncomplicated Qualified Code(s): F14.20 - Cocaine dependence, uncomplicated (3) Sedative hypnotic or anxiolytic dependence Status: Chronic (4) Asthma Status: Chronic (5) Hepatitis C carrier Status: Chronic (6) Nicotine dependence Status: Chronic Qualifiers: Nicotine product type: cigarettes (7) Opioid dependence on agonist therapy Status: Chronic (8) Withdrawal seizures Status: Suspected Qualifiers: Complication of substance-induced condition: uncomplicated Qualified Code(s ): F19.230 - Other psychoactive substance dependence with withdrawal, uncomplicated; R56.9 - Unspecified convulsions - Follow-up Referral Minutes to complete discharge: 25 - AMA Did Patient Leave Against Medical Advice: No
[2019-12-22] MEDS: QUEtiapine FUMARATE 100 MG TABLET (FP) PO SCH (21:01)
[2019-12-22] MEDS: THIAMINE HCL 100 MG TABLET (FP) PO SCH (21:01)
[2019-12-23] MEDS ORDERED: METHADONE HCL 10 MG TABLET ONE (05:41)
[2019-12-23] MEDS ORDERED: METHADONE HCL 40 MG DISPERSABLE TABLET ONE (05:42)
[2019-12-23] MEDS ORDERED: METHADONE HCL 10 MG TABLET PO SCH (06:00)
[2019-12-23] MEDS ORDERED: METHADONE 120 MG, METHADONE 20 MG PO SCH (06:00)
[2019-12-23 06:47] VITALS: BP 109/73; PULSE 90; TEMP 97.5
--- NOTE | 2019-12-23 08:43 | PN ---
[facility] Progress Note Note: Pt was discharged earlier this morning as per his request. Vital Signs - 24 hr 12/23/19 12/23/19 12/23/19 00:30 03:30 06:46 Temperature 97.5 F L Pulse Rate 90 Respiratory 18 18 18 Rate Blood Pressure 109/73 As per nurse's note, pt was escorted off the unit at about 7:30 A.M.
== END 2019-12-23 06:50 | disposition home or self-care (01) | DRG 772 ==
LOC: YASAS 12:32 → Y5N 12:33
PROVIDERS: ADMIT Allergy & Immunology; ATTEND Neuromusculoskeletal Medicine & OMM
PROC: HZ42ZZZ Group Counseling for Substance Abuse Treatment, Cognitive-Behavioral (ICD-10-PCS; principal; 2019-12-16)
PROC: HZ42ZZZ Group Counseling for Substance Abuse Treatment, Cognitive-Behavioral (ICD-10-PCS; 2019-12-16)
DX: F10.20 Alcohol dependence, uncomplicated (principal); F11.20 Opioid dependence, uncomplicated; F13.20 Sedative, hypnotic or anxiolytic dependence, uncomplicated; F14.20 Cocaine dependence, uncomplicated; F17.210 Nicotine dependence, cigarettes, uncomplicated; F25.9 Schizoaffective disorder, unspecified; I10 Essential (primary) hypertension; E11.9 Type 2 diabetes mellitus without complications; Z79.84 Long term (current) use of oral hypoglycemic drugs; J44.9 Chronic obstructive pulmonary disease, unspecified; J45.998 Other asthma; B18.2 Chronic viral hepatitis C; G40.909 Epilepsy, unspecified, not intractable, without status epilepticus; Z62.810 Personal history of physical and sexual abuse in childhood; Y07.499 Other family member, perpetrator of maltreatment and neglect; Z91.14 Patient's other noncompliance with medication regimen
CPT/HCPCS: 82962; 90732; G0009

== ENCOUNTER 2020-06-30 13:08 | Inpatient (IN) | payer OTHER ==
--- NOTE | 2020-06-30 13:45 | BHS.RME ---
Substance Use & Tx History - Substance Use History Alcohol Substance amount: 2-3 six packs beers Frequency of use: Daily Substance route: Oral Date of Last Use: 06/29/20 Heroin Substance amount: 5-6 bags Frequency of use: Daily Substance route: Injection (ex: intravenous or skin popping) Date of Last Use: 06/30/20 Cocaine- Powder Substance amount: 2-3 bags Frequency of use: Daily Substance route: Injection (ex: intravenous or skin popping) Date of Last Use: 06/29/20 Klonopin Substance amount: 2mg - 2tabs Frequency of use: Daily Substance route: Oral Date of Last Use: 06/29/20 Nicotine Substance amount: 1/2 pack Frequency of use: Daily Substance route: Smoking Date of Last Use: 06/30/20 - Last Treatment Date of last treatment: 12/16-12/23/19 Treatment type: Substance Use Disorder (DAMASO) Where was last treatment: Rehab Physical/Psych/Mental Status - Behavior General Behavior: Increased activity (restlessness, agitation) Eye Contact: Normal - Cooperativeness Cooperativeness: Cooperative - Thinking Thought Processes: Tight, Logical, Goal Directed - Physical Health Problems Is patient presently having any pain?: No Does patient presently have any injuries (include location): No Does patient currently have a fever: No Is patient : No CIWA Nausea/Vomitin-Mild Nausea/No Vomiting Muscle Tremors: 3 Anxiety: 4-Mod. Anxious/Guarded Agitation: 4-Moderately Restless Paroxysmal Sweats: 1-Minimal Palms Moist Orientation: 0-Oriented Tacttile Disturbances: 0-None Auditory Disturbances: 0-None Visual Disturbances: 0-None Headache: 0-None Present CIWA-Ar Total Score: 13
[2020-06-30 16:33] VITALS: BMI 32.5
--- NOTE | 2020-06-30 17:01 | HP ---
CIWA Score Nausea/Vomitin-Mild Nausea/No Vomiting Muscle Tremors: 3 Anxiety: 4-Mod. Anxious/Guarded Agitation: 4-Moderately Restless Paroxysmal Sweats: 3 (Increased facial moisture) Orientation: 0-Oriented Tacttile Disturbances: 0-None Auditory Disturbances: 0-None Visual Disturbances: 0-None Headache: 4-Moderately Severe CIWA-Ar Total Score: 19 - Admission Criteria OASAS Guidelines: Admission for Medically Managed Detox: Requires at least one of the followin. CIWA greater than 12 2. Seizures within the past 24 hours 3. Delirium tremens within the past 24 hours 4. Hallucinations within the past 24 hours 5. Acute intervention needed for co occurring medical disorder 6. Acute intervention needed for co occurring psychiatric disorder 7. Severe withdrawal that cannot be handled at a lower level of care (continued vomiting, continued diarrhea, abnormal vital signs) requiring intravenous medication and/or fluids 8. Patient presents the following: CIWA greater than 12 Admission Criteria Met: Admission criteria met Admitting History and Physical - Smoking History Smoking history: Current every day smoker Have you smoked in the past 12 months: Yes Aproximately how many cigarettes per day: 10 - Alcohol/Substance Use Hx Alcohol Use: Yes Admission ROS S - HPI Chief Complaint: "Here for detox cause I'm tired of using" Allergies/Adverse Reactions: Allergies Allergy/AdvReac Type Severity Reaction Status Date / Time No Known Allergies Allergy Verified 06/30/20 17:42 History of Present Illness: 44 yo presents with alcohol withdrawal seeking detox. LALY: 0 UTox: +ASPEN/FEN/MOP/MTD One seizure 2 yrs ago r/t alcohol withdrawal Denies overdoses. Alcohol use began at age 13. Currently 2-3 6 packs 12 oz beer/day. Last drink this a.m. Heroin use began at age 11. Currently uses 5 bags daily IV while on methadone. Currently on START- current dose is 140 mg. Last medicated w/ methadone today. Denies sharing needles ort works. Has a Narcan kit at home w/ someone who knows how to use. Cocaine use began at age 15. Current use 3-$20 bags/day. Uses IV. Last used 03/29/20. Nicotine use began at age 10. Currently smokes 1/2 PPD. PMHx: Asthma - last exacerbation 1 yr ago; On meds. HTN - on meds. DM - non- compliant w/ meds MHHx: Denies depression. Denies thoughts of harming self or others. SHx: Domiciled. Unemployed. Denies legal issues Search Terms: Chong Camara, 1975 Search Date: 06/30/2020 17:06:37 PM The Drug Utilization Report below displays all of the controlled substance prescriptions, if any, that your patient has filled in the last twelve months. The information displayed on this report is compiled from pharmacy submissions to the Department, and accurately reflects the information as submitted by the pharmacies. This report was requested by: Yani Saleh | Reference #: [id number] There are no results for the search terms that you entered. Exam Limitations: No Limitations - Ebola screening Have you traveled outside of the country in the last 21 days: No (Denies known COVID exposure) Have you had contact with anyone from an Ebola affected area: No Have you been sick,other than usual withdrawal symptoms: No Do you have a fever: No - Review of Systems Constitutional: Chills, Changes in sleep (Difficulty falling asleep), Weight Stable EENT: reports: No Symptoms Reported Respiratory: reports: No Symptoms reported Cardiac: reports: No Symptoms Reported GI: reports: Nausea, Indigestion (Heart burn - taking a pill - can't remember name), Abdominal cramping : reports: No Symptoms Reported Musculoskeletal: reports: Back Pain (r/t withdrawal) Integumentary: reports: Lesions ((L) arm r/t IVDU) Neuro: reports: Headache (Frontal sharp headache "8" . Denies head injury), Tremors Endocrine: reports: Increased Thirst Hematology: reports: No Symptoms Reported Psychiatric: reports: Judgement Intact, Orientated x3, Agitated, Anxious Patient History - Patient Medical History Hx Anemia: No Hx Asthma: Yes Hx Chronic Obstructive Pulmonary Disease (COPD): Yes Hx Cancer: No Hx Cardiac Disorders: No Hx Congestive Heart Failure: No Hx Hypertension: No Hx Hypercholesterolemia: No Hx Pacemaker: No HX Cerebrovascular Accident: No Hx Seizures: Yes (OCT 2019) Hx Dementia: No Hx Diabetes: Yes Hx Gastrointestinal Disorders: No Hx Liver Disease: No Hx Genitourinary Disorders: No Hx Sexually Transmitted Disorders: No Hx Renal Disease (ESRD): No Hx Thyroid Disease: No Hx Human Immunodeficiency Virus (HIV): No Hx Hepatitis C: Yes Hx Depression: Yes Hx Suicide Attempt: No Hx Bipolar Disorder: No Hx Schizophrenia: Yes - Patient Surgical History Past Surgical History: No Hx Neurologic Surgery: No Hx Cataract Extraction: No Hx Cardiac Surgery: No Hx Lung Surgery: No Hx Breast Surgery: No Hx Breast Biopsy: No Hx Abdominal Surgery: No Hx Appendectomy: No Hx Cholecystectomy: No Hx Genitourinary Surgery: No Hx Section: No Hx Orthopedic Surgery: No Anesthesia Reaction: No - PPD History Previous Implant?: Yes Documented Results: Negative w/proof Implanted On Prior [facility] Admission?: Yes Date: 12/15/19 Results: 0 mm PPD to be Administered?: No - Smoking Cessation Smoking history: Current every day smoker Have you smoked in the past 12 months: Yes Aproximately how many cigarettes per day: 10 Hx Chewing Tobacco Use: No Initiated information on smoking cessation: Yes 'Breaking Loose' booklet given: 06/30/20 - Substances abused Alcohol Substance route: Oral Frequency: Daily Amount used: 2 to 6 packs of beer/ half pint /vodka Age of first use: 13 Date of last use: 06/29/20 Heroin Substance route: Injection Frequency: Daily Amount used: 5 to 6 bags Age of first use: 13 Date of last use: 06/30/20 Cocaine Substance route: Injection Frequency: Daily Amount used: 2 to 3 bags Age of first use: 15 Date of last use: 06/29/20 Benzodiazepine (Klonopin) Substance route: Oral Frequency: Daily Amount used: 2 mg / 2 tablets Age of first use: 18 Date of last use: 06/29/20 Admission Physical Exam S - Vital Signs Vital Signs: Vital Signs - 24 hr 06/30/20 16:32 Temperature 98.2 F Pulse Rate 102 H Respiratory 20 Rate Blood Pressure 109/72 - Physical General Appearance: Yes: Nourished, Mild Distress, Obese, Tremorous, Sweating (Increased facial moisture), Anxious HEENTM: Yes: EOMI, Hearing grossly Normal, Normocephalic, Normal Voice, HENOK (Pupils = 3 mm), Pharynx Normal Respiratory: Yes: Lungs Clear (Pulse Ox = 98%), Normal Breath Sounds, No Respiratory Distress Neck: Yes: No masses,lesions,Nodules, Supple Breast: Yes: Breast Exam Deferred Cardiology: Yes: Regular Rhythm, Regular Rate, S1, S2 Abdominal: Yes: Non Tender, Soft, Increased Bowel Sounds, Protuberent (Increased abdominal adiposity) Genitourinary: Yes: Within Normal Limits Back: Yes: Normal Inspection Musculoskeletal: Yes: full range of Motion, Gait Steady Extremities: Yes: Normal Capillary Refill, Tremors (Mild seen) Neurological: Yes: pharmaceutical sales specialist II-XII NML intact, Fully Oriented, Alert, Motor Strength 5/5, Normal Mood/Affect Integumentary: Yes: Normal Color, Warm, Track Pond (Multiple track pond both arms w/ increased warmth, swelling and induration. Small scab (L) for arm.) Lymphatic: Yes: Within Normal Limits - Diagnostic (1) History of asthma Current Visit: Yes Status: Chronic (2) IVDU (intravenous drug user) Current Visit: Yes Status: Chronic (3) Cellulitis Current Visit: Yes Status: Acute Qualifiers: Site of cellulitis: extremity Site of cellulitis of extremity: upper extremity Laterality: unspecified laterality Qualified Code(s): L03.119 - Cellulitis of unspecified part of limb (4) Acid reflux Current Visit: Yes Status: Chronic Qualifiers: Esophagitis presence: without esophagitis Qualified Code(s): K21.9 - Gastro-esophageal reflux disease without esophagitis (5) Obesity (BMI 30.0-34.9) Current Visit: Yes Status: Chronic (6) Alcohol dependence with withdrawal, uncomplicated Current Visit: Yes Status: Acute (7) Cocaine dependence Current Visit: Yes Status: Acute Qualifiers: Substance use status: uncomplicated Qualified Code(s): F14.20 - Cocaine dependence, uncomplicated (8) Nicotine dependence Current Visit: Yes Status: Chronic Qualifiers: Nicotine product type: cigarettes Substance use status: uncomplicated Qualified Code(s): F17.210 - Nicotine dependence, cigarettes, uncomplicated (9) Opioid dependence on agonist therapy Current Visit: Yes Status: Chronic Comment: On mehtadone maintenance but continues to use illicit opiates IV (10) Insomnia Current Visit: Yes Status: Chronic Qualifiers: Insomnia type: unspecified Qualified Code(s): G47.00 - Insomnia, unspecified (11) Diabetes mellitus Current Visit: Yes Status: Chronic Qualifiers: Diabetes mellitus type: type 2 Diabetes mellitus citrus fruit packer insulin use: without halfway use Diabetes mellitus complication status: without complication Qualified Code(s): E11.9 - Type 2 diabetes mellitus without complications Cleared for Admission [facility] - Detox or Rehab [facility] Level of Care: Medically Managed Detox Regimen/Protocol: Librium Claeared for Rehab Admission: No Breathalyzer - Breathalyzer Breathalyzer: 0 Urine Drug Screen - Test Device Lot number: [id number] Expiration date: 03/03/22 - Control Is test valid?: Yes - Results Drug screen NEGATIVE: No Urine drug screen results: ASPEN-Cocaine, FEN-Fentanyl, MOP-Opiates, MTD-Methadone Inpatient Rehab Admission - Rehab Decision to Admit Inpatient rehab admission?: No
[2020-06-30] MEDS ORDERED: MENTHOL/PHENOL 1 EACH UD MM PRN (17:55)
[2020-06-30] MEDS ORDERED: IBUPROFEN 400 MG TABLET (FP) PO PRN (17:55)
[2020-06-30] MEDS ORDERED: ONDANSETRON *ODT* 4 MG TABLET SL ONE (17:55)
[2020-06-30] MEDS ORDERED: NICOTINE POLACRILEX 2 MG GUM BUC PRN (17:55)
[2020-06-30] MEDS ORDERED: MAG HYDROX/AL HYDROX/SIMETH 30 ML UNIT-DOSE CUP PO PRN (17:55)
[2020-06-30] MEDS ORDERED: chlordiazePOXIDE HCL 25 MG CAPSULE PO PRN (17:55)
[2020-06-30] MEDS ORDERED: ACETAMINOPHEN 325 MG TABLET (FP) PO PRN ×2 (17:55)
[2020-06-30] MEDS ORDERED: MAGNESIUM CITRATE 300 ML BOTTLE PO PRN (17:55)
[2020-06-30] MEDS ORDERED: BISMUTH SUBSALICYLATE 524 MG/30 ML UD PO PRN (17:55)
[2020-06-30] MEDS ORDERED: METHOCARBAMOL 500 MG TABLET PO PRN (17:55)
[2020-06-30] MEDS ORDERED: MAGNESIUM HYDROX 2400MG/30ML ORAL SUSPENSION 30 ML CUP PO PRN (17:55)
[2020-06-30] MEDS ORDERED: PANTOPRAZOLE 20 MG TABLET PO ONE (18:02)
[2020-06-30] MEDS: CEPHALEXIN MONOHYDRATE 500 MG CAPSULE (UD) PO SCH ×2 (18:47→23:30)
[2020-06-30] MEDS ORDERED: traZODone HCL 50 MG TABLET (FP) PO ONE (22:00)
[2020-06-30] MEDS: chlordiazePOXIDE HCL 25 MG CAPSULE PO SCH (22:35)
[2020-06-30] MEDS: THIAMINE HCL 100 MG TABLET (FP) PO SCH (22:36)
[2020-06-30] MEDS: MELATONIN 5 MG TABLETS PO SCH (22:36)
[2020-07-01] MEDS: CEPHALEXIN MONOHYDRATE 500 MG CAPSULE (UD) PO SCH ×4 (05:56→23:36)
[2020-07-01] MEDS: chlordiazePOXIDE HCL 25 MG CAPSULE PO SCH ×4 (05:57→22:34)
[2020-07-01] MEDS ORDERED: ALBUTEROL SO4 HFA INHALER IH PRN (07:32)
[2020-07-01] MEDS ORDERED: METHADONE HCL 10 MG TABLET PO ONE (08:39)
[2020-07-01] MEDS ORDERED: METHADONE 120 MG, METHADONE 20 MG PO ONE (08:39)
[2020-07-01] MEDS ORDERED: METHADONE HCL 10 MG TABLET ONE (09:30)
[2020-07-01] MEDS ORDERED: METHADONE HCL 40 MG DISPERSABLE TABLET ONE (09:31)
[2020-07-01] MEDS: PANTOPRAZOLE 40 MG TABLET PO SCH (09:39)
[2020-07-01] MEDS: ENALAPRIL MALEATE 10 MG TABLET (FP) PO SCH (09:40)
[2020-07-01] MEDS: BUDESONIDE/FORMETEROL FUMARATE 80/4.5 mcg INHALER IH SCH ×2 (09:40→22:36)
[2020-07-01] MEDS: PRENATAL VITAMINS W/ FOLIC ACID TABLET (FP) PO SCH (11:49)
[2020-07-01] MEDS: NICOTINE 14 MG/24 HOURS TOPICAL PATCH TD SCH (11:49)
[2020-07-01 11:55] LABS: HEMATOCRIT 36.6 % (35.4-49); HEMOGLOBIN 11.8 GM/dL (11.7-16.9); MCH 27.1 pg (25.7-33.7); MCHC 32.1 g/dl (32.0-35.9); MEAN CELL VOLUME 84.3 fl (80-96); MEAN PLT VOLUME 9.8 fl (7.5-11.1); PLATELET COUNT 144 K/MM3 (134-434); RBC 4.34 M/mm3 (4.00-5.60); RDW 16.1 % (11.9-15.9); WHITE BLOOD COUNT 5.2 K/mm3 (4.0-10.0)
[2020-07-01 12:09] LABS: ALBUMIN 2.9 g/dl (3.4-5.0); BILIRUBIN,TOTAL 0.3 mg/dL (0.2-1); CALCIUM 8.5 mg/dL (8.5-10.1); POTASSIUM 3.8 mmol/L (3.5-5.1); TOT PROT 6.5 g/dl (6.4-8.2)
--- NOTE | 2020-07-01 12:21 | PN ---
[facility] CIWA - CIWA Score Nausea/Vomitin-Mild Nausea/No Vomiting Muscle Tremors: 2 Anxiety: 2 Agitation: 2 Paroxysmal Sweats: 1-Minimal Palms Moist Orientation: 0-Oriented Tacttile Disturbances: 1-Very Mild Itch/Numbness Auditory Disturbances: 0-None Visual Disturbances: 0-None Headache: 1-Very Mild CIWA-Ar Total Score: 10 S Progress Note (SOAP) Subjective: alert,irritable,anxious,interrupted sleep,tremor Objective: 07/01/20 12:20 Vital Signs Temperature 97.3 F L 07/01/20 05:15 Pulse Rate 76 07/01/20 05:15 Respiratory Rate 18 07/01/20 05:15 Blood Pressure 100/61 07/01/20 05:15 O2 Sat by Pulse Oximetry (%) 97 07/01/20 05:15 07/01/20 13:37 Laboratory Last Values WBC 5.2 K/mm3 (4.0-10.0) 07/01/20 08:05 RBC 4.34 M/mm3 (4.00-5.60) 07/01/20 08:05 Hgb 11.8 GM/dL (11.7-16.9) 07/01/20 08:05 Hct 36.6 % (35.4-49) 07/01/20 08:05 MCV 84.3 fl (80-96) 07/01/20 08:05 MCH 27.1 pg (25.7-33.7) 07/01/20 08:05 MCHC 32.1 g/dl (32.0-35.9) 07/01/20 08:05 RDW 16.1 % (11.9-15.9) H 07/01/20 08:05 Plt Count 144 K/MM3 (134-434) D 07/01/20 08:05 MPV 9.8 fl (7.5-11.1) 07/01/20 08:05 Sodium 137 mmol/L (136-145) 07/01/20 08:05 Potassium 3.8 mmol/L (3.5-5.1) 07/01/20 08:05 Chloride 105 mmol/L (98-107) 07/01/20 08:05 Carbon Dioxide 26 mmol/L (21-32) 07/01/20 08:05 Anion Gap 6 MMOL/L (8-16) L 07/01/20 08:05 BUN 15.0 mg/dL (7-18) 07/01/20 08:05 Creatinine 1.0 mg/dL (0.55-1.3) 07/01/20 08:05 Est GFR (CKD-EPI)AfAm 104.15 07/01/20 08:05 Est GFR (CKD-EPI)NonAf 89.86 07/01/20 08:05 POC Glucometer 144 UNITS (80-120) 07/01/20 05:56 Random Glucose 141 mg/dL (74-106) H 07/01/20 08:05 Calcium 8.5 mg/dL (8.5-10.1) 07/01/20 08:05 Total Bilirubin 0.3 mg/dL (0.2-1) 07/01/20 08:05 AST 29 U/L (15-37) 07/01/20 08:05 ALT 50 U/L (13-61) 07/01/20 08:05 Alkaline Phosphatase 127 U/L (45-117) H 07/01/20 08:05 Total Protein 6.5 g/dl (6.4-8.2) 07/01/20 08:05 Albumin 2.9 g/dl (3.4-5.0) L 07/01/20 08:05 Syphilis Serology Non-reactive (NONREACTIVE) 07/01/20 08:05 Assessment: 07/01/20 13:37 withdrawal symptom Plan: continue detox librium regimen,methadone maintenance 140 mgs/day,keflex 500mgs po q hrs for cellulitis,
--- NOTE | 2020-07-01 13:43 | PN ---
S COWS - Scale Resting Pulse: 0= [place] 80 or Below Sweatin= No chills or Flushing Restless Observation: 1= Difficult to Sit Still Pupil Size: 1= Pupils >than Normal Bone or Joint Aches: 2= Severe Diffuse Aches Runny Nose/ Eye Tearin= Runny Nose/Eyes GI Upset > 30mins: 2= Nausea/Diarrhea Tremor Observation of Outstretched Hands: 2= Slight Tremor Visible Yawning Observation: 1= 1-2x During Session Anxiety or Irritability: 2=Irritable/Anxious Goose Flesh Skin: 0=Smooth Skin COWS Score: 13 [facility] Progress Note (SOAP) Subjective: alert,irritable,anxious,interrupted sleep,tremor,pain of body and back,nausea Objective: 07/01/20 13:42 Vital Signs Temperature 97.3 F L 07/01/20 05:15 Pulse Rate 76 07/01/20 05:15 Respiratory Rate 18 07/01/20 05:15 Blood Pressure 100/61 07/01/20 05:15 O2 Sat by Pulse Oximetry (%) 97 07/01/20 05:15 07/01/20 13:42 Laboratory Last Values WBC 5.2 K/mm3 (4.0-10.0) 07/01/20 08:05 RBC 4.34 M/mm3 (4.00-5.60) 07/01/20 08:05 Hgb 11.8 GM/dL (11.7-16.9) 07/01/20 08:05 Hct 36.6 % (35.4-49) 07/01/20 08:05 MCV 84.3 fl (80-96) 07/01/20 08:05 MCH 27.1 pg (25.7-33.7) 07/01/20 08:05 MCHC 32.1 g/dl (32.0-35.9) 07/01/20 08:05 RDW 16.1 % (11.9-15.9) H 07/01/20 08:05 Plt Count 144 K/MM3 (134-434) D 07/01/20 08:05 MPV 9.8 fl (7.5-11.1) 07/01/20 08:05 Sodium 137 mmol/L (136-145) 07/01/20 08:05 Potassium 3.8 mmol/L (3.5-5.1) 07/01/20 08:05 Chloride 105 mmol/L (98-107) 07/01/20 08:05 Carbon Dioxide 26 mmol/L (21-32) 07/01/20 08:05 Anion Gap 6 MMOL/L (8-16) L 07/01/20 08:05 BUN 15.0 mg/dL (7-18) 07/01/20 08:05 Creatinine 1.0 mg/dL (0.55-1.3) 07/01/20 08:05 Est GFR (CKD-EPI)AfAm 104.15 07/01/20 08:05 Est GFR (CKD-EPI)NonAf 89.86 07/01/20 08:05 POC Glucometer 144 UNITS (80-120) 07/01/20 05:56 Random Glucose 141 mg/dL (74-106) H 07/01/20 08:05 Calcium 8.5 mg/dL (8.5-10.1) 07/01/20 08:05 Total Bilirubin 0.3 mg/dL (0.2-1) 07/01/20 08:05 AST 29 U/L (15-37) 07/01/20 08:05 ALT 50 U/L (13-61) 07/01/20 08:05 Alkaline Phosphatase 127 U/L (45-117) H 07/01/20 08:05 Total Protein 6.5 g/dl (6.4-8.2) 07/01/20 08:05 Albumin 2.9 g/dl (3.4-5.0) L 07/01/20 08:05 Syphilis Serology Non-reactive (NONREACTIVE) 07/01/20 08:05
--- NOTE | 2020-07-01 14:56 | EKG ---
Test Reason : Blood Pressure : / mmHG Vent. Rate : 081 BPM Atrial Rate : 081 BPM P-R Int : 168 ms QRS Dur : 080 ms QT Int : 382 ms P-R-T Axes : 069 053 045 degrees QTc Int : 443 ms NORMAL SINUS RHYTHM NORMAL ECG NO PREVIOUS ECGS AVAILABLE Confirmed by CONOR BONILLA MD ([id number]) on 07/01/2020 2:56:12 PM Referred By: Confirmed By:CONOR BONILLA MD
--- NOTE | 2020-07-01 17:51 | PN ---
S Progress Note Note: Pt requesting Seroquel- was on it last admission. To be seen by MH tomorrow. Will restart Seroquel 100m g qhs for now
[2020-07-01] MEDS ORDERED: QUEtiapine FUMARATE 100 MG TABLET (FP) PO SCH (22:00)
[2020-07-01] MEDS: THIAMINE HCL 100 MG TABLET (FP) PO SCH (22:34)
[2020-07-01] MEDS: MELATONIN 5 MG TABLETS PO SCH (22:42)
[2020-07-02] MEDS ORDERED: METHADONE HCL 10 MG TABLET ONE (04:22)
[2020-07-02] MEDS ORDERED: METHADONE HCL 40 MG DISPERSABLE TABLET ONE (04:22)
[2020-07-02] MEDS: CEPHALEXIN MONOHYDRATE 500 MG CAPSULE (UD) PO SCH ×4 (05:11→23:03)
[2020-07-02] MEDS: chlordiazePOXIDE HCL 25 MG CAPSULE PO SCH ×4 (05:11→22:04)
[2020-07-02] MEDS: METHADONE 120 MG, METHADONE 20 MG PO SCH (05:11)
[2020-07-02] MEDS ORDERED: METHADONE HCL 40 MG DISPERSABLE TABLET PO SCH (06:00)
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
[2020-07-02] MEDS: ENALAPRIL MALEATE 10 MG TABLET (FP) PO SCH (11:36)
[2020-07-02] MEDS: PANTOPRAZOLE 40 MG TABLET PO SCH (11:37)
[2020-07-02] MEDS: PRENATAL VITAMINS W/ FOLIC ACID TABLET (FP) PO SCH (11:37)
[2020-07-02] MEDS: BUDESONIDE/FORMETEROL FUMARATE 80/4.5 mcg INHALER IH SCH ×2 (11:37→22:05)
[2020-07-02] MEDS: NICOTINE 14 MG/24 HOURS TOPICAL PATCH TD SCH (11:37)
--- NOTE | 2020-07-02 12:00 | PN ---
S CIWA - CIWA Score Nausea/Vomitin-Mild Nausea/No Vomiting Muscle Tremors: 2 Anxiety: 2 Agitation: 1-Slight > Activity Paroxysmal Sweats: No Perspiration Orientation: 0-Oriented Tacttile Disturbances: 1-Very Mild Itch/Numbness Auditory Disturbances: 0-None Visual Disturbances: 0-None Headache: 1-Very Mild CIWA-Ar Total Score: 8 BHS Progress Note (SOAP) Subjective: alert,irritable,anxious,interrupted sleep aching pain in the body and back Objective: 07/02/20 12:02 Vital Signs Temperature 97.3 F L 07/02/20 09:00 Pulse Rate 98 H 07/02/20 09:00 Respiratory Rate 18 07/02/20 09:00 Blood Pressure 106/74 07/02/20 09:00 O2 Sat by Pulse Oximetry (%) 95 07/02/20 09:00 Laboratory Last Values WBC 5.2 K/mm3 (4.0-10.0) 07/01/20 08:05 RBC 4.34 M/mm3 (4.00-5.60) 07/01/20 08:05 Hgb 11.8 GM/dL (11.7-16.9) 07/01/20 08:05 Hct 36.6 % (35.4-49) 07/01/20 08:05 MCV 84.3 fl (80-96) 07/01/20 08:05 MCH 27.1 pg (25.7-33.7) 07/01/20 08:05 MCHC 32.1 g/dl (32.0-35.9) 07/01/20 08:05 RDW 16.1 % (11.9-15.9) H 07/01/20 08:05 Plt Count 144 K/MM3 (134-434) D 07/01/20 08:05 MPV 9.8 fl (7.5-11.1) 07/01/20 08:05 Sodium 137 mmol/L (136-145) 07/01/20 08:05 Potassium 3.8 mmol/L (3.5-5.1) 07/01/20 08:05 Chloride 105 mmol/L (98-107) 07/01/20 08:05 Carbon Dioxide 26 mmol/L (21-32) 07/01/20 08:05 Anion Gap 6 MMOL/L (8-16) L 07/01/20 08:05 BUN 15.0 mg/dL (7-18) 07/01/20 08:05 Creatinine 1.0 mg/dL (0.55-1.3) 07/01/20 08:05 Est GFR (CKD-EPI)AfAm 104.15 07/01/20 08:05 Est GFR (CKD-EPI)NonAf 89.86 07/01/20 08:05 POC Glucometer 148 UNITS (80-120) 07/02/20 12:00 Random Glucose 141 mg/dL (74-106) H 07/01/20 08:05 Calcium 8.5 mg/dL (8.5-10.1) 07/01/20 08:05 Total Bilirubin 0.3 mg/dL (0.2-1) 07/01/20 08:05 AST 29 U/L (15-37) 07/01/20 08:05 ALT 50 U/L (13-61) 07/01/20 08:05 Alkaline Phosphatase 127 U/L (45-117) H 07/01/20 08:05 Total Protein 6.5 g/dl (6.4-8.2) 07/01/20 08:05 Albumin 2.9 g/dl (3.4-5.0) L 07/01/20 08:05 Syphilis Serology Non-reactive (NONREACTIVE) 07/01/20 08:05 COVID-19 (SARAH) Not detected (Not Detected) 06/30/20 18:15 Assessment: 07/02/20 12:04 withdrawal symptom Plan: continue detox librium regiment,methadone maintenance 140 mgs/day maintenance,psychiatric consultation,bgm monitoring
[2020-07-02] MEDS: MELATONIN 5 MG TABLETS PO SCH (22:04)
[2020-07-02] MEDS: QUEtiapine FUMARATE 100 MG TABLET (FP) PO SCH (22:04)
[2020-07-02] MEDS: THIAMINE HCL 100 MG TABLET (FP) PO SCH (22:04)
[2020-07-03] MEDS ORDERED: chlordiazePOXIDE HCL 10 MG CAPSULE PO PRN
[2020-07-03] MEDS ORDERED: METHADONE HCL 10 MG TABLET ONE (03:47)
[2020-07-03] MEDS ORDERED: METHADONE HCL 40 MG DISPERSABLE TABLET ONE (03:48)
[2020-07-03] MEDS: chlordiazePOXIDE HCL 10 MG CAPSULE PO SCH ×4 (05:52→22:01)
[2020-07-03] MEDS: CEPHALEXIN MONOHYDRATE 500 MG CAPSULE (UD) PO SCH ×4 (05:52→23:23)
[2020-07-03] MEDS: METHADONE 120 MG, METHADONE 20 MG PO SCH (05:53)
[2020-07-03] MEDS: PRENATAL VITAMINS W/ FOLIC ACID TABLET (FP) PO SCH (10:27)
[2020-07-03] MEDS: ENALAPRIL MALEATE 10 MG TABLET (FP) PO SCH (10:31)
[2020-07-03] MEDS: hydrOXYzine PAMOATE 25 MG CAPSULE (FP) PO PRN (10:32)
[2020-07-03] MEDS: BUDESONIDE/FORMETEROL FUMARATE 80/4.5 mcg INHALER IH SCH ×2 (10:32→22:02)
[2020-07-03] MEDS: PANTOPRAZOLE 40 MG TABLET PO SCH (10:32)
[2020-07-03] MEDS: NICOTINE 14 MG/24 HOURS TOPICAL PATCH TD SCH (10:33)
--- NOTE | 2020-07-03 15:21 | PN ---
[facility] CIWA - CIWA Score Nausea/Vomitin-No Nausea/No Vomiting Muscle Tremors: 2 Anxiety: 2 Agitation: 1-Slight > Activity Paroxysmal Sweats: 2 Orientation: 0-Oriented Tacttile Disturbances: 0-None Auditory Disturbances: 2-Mild Harshness/Frighten Visual Disturbances: 0-None Headache: 0-None Present CIWA-Ar Total Score: 9 BHS Progress Note (SOAP) Subjective: Complaints of sweats, shakes, anxiety and light sensitivity. Objective: 07/03/20 15:19 Vital Signs 07/03/20 07/03/20 09:35 13:34 Temperature 96.9 F L 97.3 F L Pulse Rate 80 96 H Respiratory 18 183 H Rate Blood Pressure 117/64 110/70 O2 Sat by Pulse 99 96 Oximetry (%) Laboratory Last Values WBC 5.2 K/mm3 (4.0-10.0) 07/01/20 08:05 RBC 4.34 M/mm3 (4.00-5.60) 07/01/20 08:05 Hgb 11.8 GM/dL (11.7-16.9) 07/01/20 08:05 Hct 36.6 % (35.4-49) 07/01/20 08:05 MCV 84.3 fl (80-96) 07/01/20 08:05 MCH 27.1 pg (25.7-33.7) 07/01/20 08:05 MCHC 32.1 g/dl (32.0-35.9) 07/01/20 08:05 RDW 16.1 % (11.9-15.9) H 07/01/20 08:05 Plt Count 144 K/MM3 (134-434) D 07/01/20 08:05 MPV 9.8 fl (7.5-11.1) 07/01/20 08:05 Sodium 137 mmol/L (136-145) 07/01/20 08:05 Potassium 3.8 mmol/L (3.5-5.1) 07/01/20 08:05 Chloride 105 mmol/L (98-107) 07/01/20 08:05 Carbon Dioxide 26 mmol/L (21-32) 07/01/20 08:05 Anion Gap 6 MMOL/L (8-16) L 07/01/20 08:05 BUN 15.0 mg/dL (7-18) 07/01/20 08:05 Creatinine 1.0 mg/dL (0.55-1.3) 07/01/20 08:05 Est GFR (CKD-EPI)AfAm 104.15 07/01/20 08:05 Est GFR (CKD-EPI)NonAf 89.86 07/01/20 08:05 POC Glucometer 148 UNITS (80-120) 07/02/20 12:00 Random Glucose 141 mg/dL (74-106) H 07/01/20 08:05 Calcium 8.5 mg/dL (8.5-10.1) 07/01/20 08:05 Total Bilirubin 0.3 mg/dL (0.2-1) 07/01/20 08:05 AST 29 U/L (15-37) 07/01/20 08:05 ALT 50 U/L (13-61) 07/01/20 08:05 Alkaline Phosphatase 127 U/L (45-117) H 07/01/20 08:05 Total Protein 6.5 g/dl (6.4-8.2) 07/01/20 08:05 Albumin 2.9 g/dl (3.4-5.0) L 07/01/20 08:05 Syphilis Serology Non-reactive (NONREACTIVE) 07/01/20 08:05 COVID-19 (SARAH) Not detected (Not Detected) 06/30/20 18:15 Labs noted. Assessment: 07/03/20 15:20 Alert and oriented x3, in no acute respiratory distress. Full ROM, ambulating in hallway without assistance. Skin warm to touch with no lesions noted. Withdrawal symptoms. Plan: Continue detox protocol.
[2020-07-03] MEDS: QUEtiapine FUMARATE 100 MG TABLET (FP) PO SCH (22:01)
[2020-07-03] MEDS: THIAMINE HCL 100 MG TABLET (FP) PO SCH (22:01)
[2020-07-03] MEDS: MELATONIN 5 MG TABLETS PO SCH (22:02)
[2020-07-04] MEDS: CEPHALEXIN MONOHYDRATE 500 MG CAPSULE (UD) PO SCH ×4 (05:18→23:07)
[2020-07-04] MEDS: chlordiazePOXIDE HCL 10 MG CAPSULE PO SCH ×2 (05:18→17:40)
[2020-07-04] MEDS ORDERED: METHADONE HCL 10 MG TABLET ONE (05:19)
[2020-07-04] MEDS ORDERED: METHADONE HCL 40 MG DISPERSABLE TABLET ONE (05:19)
[2020-07-04] MEDS: METHADONE 120 MG, METHADONE 20 MG PO SCH (05:19)
[2020-07-04] MEDS: PRENATAL VITAMINS W/ FOLIC ACID TABLET (FP) PO SCH (11:08)
[2020-07-04] MEDS: ENALAPRIL MALEATE 10 MG TABLET (FP) PO SCH (11:09)
[2020-07-04] MEDS: hydrOXYzine PAMOATE 25 MG CAPSULE (FP) PO PRN (11:09)
[2020-07-04] MEDS: PANTOPRAZOLE 40 MG TABLET PO SCH (11:09)
[2020-07-04] MEDS: NICOTINE 14 MG/24 HOURS TOPICAL PATCH TD SCH (11:09)
[2020-07-04] MEDS: BUDESONIDE/FORMETEROL FUMARATE 80/4.5 mcg INHALER IH SCH ×2 (11:10→22:05)
--- NOTE | 2020-07-04 11:17 | PN ---
S CIWA - CIWA Score Nausea/Vomitin-No Nausea/No Vomiting Muscle Tremors: 1-None Visible, but [place] Anxiety: 2 Agitation: 2 Paroxysmal Sweats: 1-Minimal Palms Moist Orientation: 0-Oriented Tacttile Disturbances: 0-None Auditory Disturbances: 0-None Visual Disturbances: 0-None Headache: 0-None Present CIWA-Ar Total Score: 6 BHS Progress Note (SOAP) Subjective: ADMITTED FOR ETOH WITHDRAWAL SX. C/O ANXIETY, MILD RESTLESSNESS AND SHAKES. Objective: 07/04/20 11:16 Laboratory Tests 06/30/20 06/30/20 07/01/20 18:15 18:16 05:56 WBC RBC Hgb Hct MCV MCH MCHC RDW Plt Count MPV Sodium Potassium Chloride Carbon Dioxide Anion Gap BUN Creatinine Est GFR (CKD-EPI)AfAm Est GFR (CKD-EPI)NonAf POC Glucometer 91 144 Random Glucose Calcium Total Bilirubin AST ALT Alkaline Phosphatase Total Protein Albumin Syphilis Serology COVID-19 (SARAH) Not detected 07/01/20 07/01/20 07/01/20 08:05 08:05 08:05 WBC 5.2 RBC 4.34 Hgb 11.8 Hct 36.6 MCV 84.3 MCH 27.1 MCHC 32.1 RDW 16.1 H Plt Count 144 D MPV 9.8 Sodium 137 Potassium 3.8 Chloride 105 Carbon Dioxide 26 Anion Gap 6 L BUN 15.0 Creatinine 1.0 Est GFR (CKD-EPI)AfAm 104.15 Est GFR (CKD-EPI)NonAf 89.86 POC Glucometer Random Glucose 141 H Calcium 8.5 Total Bilirubin 0.3 AST 29 ALT 50 Alkaline Phosphatase 127 H Total Protein 6.5 Albumin 2.9 L Syphilis Serology Non-reactive COVID-19 (SARAH) 07/01/20 07/02/20 07/02/20 16:27 05:15 12:00 WBC RBC Hgb Hct MCV MCH MCHC RDW Plt Count MPV Sodium Potassium Chloride Carbon Dioxide Anion Gap BUN Creatinine Est GFR (CKD-EPI)AfAm Est GFR (CKD-EPI)NonAf POC Glucometer 117 137 148 Random Glucose Calcium Total Bilirubin AST ALT Alkaline Phosphatase Total Protein Albumin Syphilis Serology COVID-19 (SARAH) 07/03/20 07/04/20 16:42 05:17 WBC RBC Hgb Hct MCV MCH MCHC RDW Plt Count MPV Sodium Potassium Chloride Carbon Dioxide Anion Gap BUN Creatinine Est GFR (CKD-EPI)AfAm Est GFR (CKD-EPI)NonAf POC Glucometer 116 139 Random Glucose Calcium Total Bilirubin AST ALT Alkaline Phosphatase Total Protein Albumin Syphilis Serology COVID-19 (SARAH) Vital Signs Temperature 97.1 F L 07/04/20 08:47 Pulse Rate 84 07/04/20 08:47 Respiratory Rate 20 07/04/20 08:47 Blood Pressure 102/67 07/04/20 08:47 O2 Sat by Pulse Oximetry (%) 98 07/04/20 08:47 PE ALERT AND ORIENTED X 3 SKIN WARM AND DRY RESTING IN BED EXT MILD TREMORS FELT ANXIOUS MILD RESTLESSNESS Assessment: 07/04/20 11:17 ETOH WITHDRAWAL SX Plan: CONTINUED DETOX FOR D/C IN AM
[2020-07-04] MEDS: THIAMINE HCL 100 MG TABLET (FP) PO SCH (21:38)
[2020-07-04] MEDS: QUEtiapine FUMARATE 100 MG TABLET (FP) PO SCH (21:38)
[2020-07-04] MEDS: MELATONIN 5 MG TABLETS PO SCH (21:38)
[2020-07-05] MEDS ORDERED: METHADONE HCL 10 MG TABLET ONE (04:52)
[2020-07-05] MEDS ORDERED: METHADONE HCL 40 MG DISPERSABLE TABLET ONE (04:52)
[2020-07-05] MEDS ORDERED: chlordiazePOXIDE HCL 10 MG CAPSULE PO ONE (05:00)
[2020-07-05] MEDS: METHADONE 120 MG, METHADONE 20 MG PO SCH (05:45)
[2020-07-05] MEDS: CEPHALEXIN MONOHYDRATE 500 MG CAPSULE (UD) PO SCH (05:46)
[2020-07-05] MEDS: ENALAPRIL MALEATE 10 MG TABLET (FP) PO SCH (10:07)
[2020-07-05] MEDS: BUDESONIDE/FORMETEROL FUMARATE 80/4.5 mcg INHALER IH SCH (10:08)
[2020-07-05] MEDS: PANTOPRAZOLE 40 MG TABLET PO SCH (10:08)
[2020-07-05] MEDS: PRENATAL VITAMINS W/ FOLIC ACID TABLET (FP) PO SCH (10:09)
[2020-07-05] MEDS: NICOTINE 14 MG/24 HOURS TOPICAL PATCH TD SCH (10:09)
[2020-07-05 10:22] VITALS: BP 109/68; PULSE 88; TEMP 97.3
--- NOTE | 2020-07-05 10:58 | PN ---
[facility] CIWA - CIWA Score Nausea/Vomitin-No Nausea/No Vomiting Muscle Tremors: None Anxiety: 1-Mildly Anxious Agitation: 0-Normal Activity Paroxysmal Sweats: No Perspiration Orientation: 0-Oriented Tacttile Disturbances: 0-None Auditory Disturbances: 0-None Visual Disturbances: 0-None Headache: 0-None Present CIWA-Ar Total Score: 1 S Progress Note (SOAP) Subjective: alert,no complaint Objective: 07/05/20 11:34 Vital Signs Temperature 97.3 F L 07/05/20 08:57 Pulse Rate 88 07/05/20 08:57 Respiratory Rate 18 07/05/20 08:57 Blood Pressure 109/68 07/05/20 08:57 O2 Sat by Pulse Oximetry (%) 99 07/05/20 05:35 Assessment: 07/05/20 11:34 detox completed,no withdrawal symptom Plan: stable for discharge today,follow up with after care program [facility] arrangement
--- NOTE | 2020-07-05 11:37 | DS ---
[facility] Detox Discharge Summary Admission Date: 06/30/20 Discharge Date: 07/05/20 - History Present History: Alcohol Dependence, Cocaine Dependence, MMTP Additional Comments: alert,oriented x 3 ambulation on the unit lung clear on auscultation bilaterally no abdominal pain detox completed,no withdrawal symptom stable for discharge today follow up with after care program [facility] arrangement follow up with [facility] arrangement total time of discharge 35 minutes Pertinent Past History: hepatitis c nicotine dependence cellulitis asthma type 2 dm methadone maintenance therapy schizoaffective disorder - Physical Exam Results Vital Signs: Vital Signs Temperature 97.3 F L 07/05/20 08:57 Pulse Rate 88 07/05/20 08:57 Respiratory Rate 18 07/05/20 08:57 Blood Pressure 109/68 07/05/20 08:57 O2 Sat by Pulse Oximetry (%) 99 07/05/20 05:35 Pertinent Admission Physical Exam Findings: withdrawal signs and symptom Laboratory Last Values WBC 5.2 K/mm3 (4.0-10.0) 07/01/20 08:05 RBC 4.34 M/mm3 (4.00-5.60) 07/01/20 08:05 Hgb 11.8 GM/dL (11.7-16.9) 07/01/20 08:05 Hct 36.6 % (35.4-49) 07/01/20 08:05 MCV 84.3 fl (80-96) 07/01/20 08:05 MCH 27.1 pg (25.7-33.7) 07/01/20 08:05 MCHC 32.1 g/dl (32.0-35.9) 07/01/20 08:05 RDW 16.1 % (11.9-15.9) H 07/01/20 08:05 Plt Count 144 K/MM3 (134-434) D 07/01/20 08:05 MPV 9.8 fl (7.5-11.1) 07/01/20 08:05 Sodium 137 mmol/L (136-145) 07/01/20 08:05 Potassium 3.8 mmol/L (3.5-5.1) 07/01/20 08:05 Chloride 105 mmol/L (98-107) 07/01/20 08:05 Carbon Dioxide 26 mmol/L (21-32) 07/01/20 08:05 Anion Gap 6 MMOL/L (8-16) L 07/01/20 08:05 BUN 15.0 mg/dL (7-18) 07/01/20 08:05 Creatinine 1.0 mg/dL (0.55-1.3) 07/01/20 08:05 Est GFR (CKD-EPI)AfAm 104.15 07/01/20 08:05 Est GFR (CKD-EPI)NonAf 89.86 07/01/20 08:05 POC Glucometer 142 UNITS (80-120) 07/05/20 05:55 Random Glucose 141 mg/dL (74-106) H 07/01/20 08:05 Calcium 8.5 mg/dL (8.5-10.1) 07/01/20 08:05 Total Bilirubin 0.3 mg/dL (0.2-1) 07/01/20 08:05 AST 29 U/L (15-37) 07/01/20 08:05 ALT 50 U/L (13-61) 07/01/20 08:05 Alkaline Phosphatase 127 U/L (45-117) H 07/01/20 08:05 Total Protein 6.5 g/dl (6.4-8.2) 07/01/20 08:05 Albumin 2.9 g/dl (3.4-5.0) L 07/01/20 08:05 Syphilis Serology Non-reactive (NONREACTIVE) 07/01/20 08:05 COVID-19 (SARAH) Not detected (Not Detected) 06/30/20 18:15 Vital Signs Temperature 97.3 F L 07/05/20 08:57 Pulse Rate 88 07/05/20 08:57 Respiratory Rate 18 07/05/20 08:57 Blood Pressure 109/68 07/05/20 08:57 O2 Sat by Pulse Oximetry (%) 99 07/05/20 05:35 - Treatment Hospital Course: Detox Protocol Followed, Detoxed Safely, Responded well, Discharged Condition Good, Rehab Referral Accepted Patient has Accepted a Rehab Referral to: [facility] - Medication Discharge Medications: Ambulatory Orders Duloxetine [Cymbalta -] 60 mg PO DAILY 10/19/12 Quetiapine Fumarate [Seroquel -] 300 mg PO HS #0 tablet 10/21/12 Naloxone HCl [Narcan] 4 mg NS ASDIR PRN #1 spray 12/15/19 SYMBICORT 80/4.5mcg - 2 puff IH BID 12/19/19 Quetiapine Fumarate [Seroquel -] 100 mg PO HS #30 tablet 12/22/19 Albuterol Sulfate Inhaler - [Ventolin HFA Inhaler -] 2 inh PO Q6H PRN #1 inhaler 07/04/20 Cephalexin Monohydrate [Keflex -] 500 mg PO Q6HPO 5 Days #20 capsule 07/04/20 Enalapril Maleate [Vasotec] 20 tablet PO AM #14 tablet 07/04/20 - Diagnosis (1) Alcohol dependence with withdrawal, uncomplicated Current Visit: Yes Status: Acute (2) Cellulitis Current Visit: Yes Status: Acute Qualifiers: Site of cellulitis: extremity Site of cellulitis of extremity: upper extremity Laterality: unspecified laterality Qualified Code(s): L03.119 - Cellulitis of unspecified part of limb (3) Cocaine dependence Current Visit: Yes Status: Acute Qualifiers: Substance use status: uncomplicated Qualified Code(s): F14.20 - Cocaine dependence, uncomplicated (4) Diabetes mellitus Current Visit: Yes Status: Chronic Qualifiers: Diabetes mellitus type: type 2 Diabetes mellitus terminal press operator insulin use: without care home use Diabetes mellitus complication status: without complication Qualified Code(s): E11.9 - Type 2 diabetes mellitus without complications (5) History of asthma Current Visit: Yes Status: Chronic (6) IVDU (intravenous drug user) Current Visit: Yes Status: Chronic (7) Opioid dependence on agonist therapy Current Visit: Yes Status: Chronic (8) Asthma Current Visit: No Status: Chronic (9) Withdrawal seizures Current Visit: No Status: Resolved Qualifiers: Complication of substance-induced condition: uncomplicated Qualified Code(s): F19.230 - Other psychoactive substance dependence with withdrawal, uncomplicated; R56.9 - Unspecified convulsions (10) Hepatitis C Current Visit: Yes Status: Acute (11) Hypertension Current Visit: Yes Status: Acute - AMA Did Patient Leave Against Medical Advice: No
== END 2020-07-05 12:18 | disposition other institution (70) | DRG 773 ==
LOC: YASAS 13:08 → Y6N 18:00
PROVIDERS: ADMIT Allergy & Immunology; ATTEND Allergy & Immunology
PROC: HZ2ZZZZ Detoxification Services for Substance Abuse Treatment (ICD-10-PCS; principal; 2020-06-30)
DX: F10.230 Alcohol dependence with withdrawal, uncomplicated (principal); F11.20 Opioid dependence, uncomplicated; F14.20 Cocaine dependence, uncomplicated; F13.20 Sedative, hypnotic or anxiolytic dependence, uncomplicated; F17.210 Nicotine dependence, cigarettes, uncomplicated; F25.9 Schizoaffective disorder, unspecified; F19.282 Other psychoactive substance dependence with psychoactive substance-induced sleep disorder; I10 Essential (primary) hypertension; E11.9 Type 2 diabetes mellitus without complications; L03.119 Cellulitis of unspecified part of limb; J45.909 Unspecified asthma, uncomplicated; K21.9 Gastro-esophageal reflux disease without esophagitis; B18.2 Chronic viral hepatitis C; G47.00 Insomnia, unspecified; E66.9 Obesity, unspecified; Z68.32 Body mass index [BMI] 32.0-32.9, adult; Z91.14 Patient's other noncompliance with medication regimen; Z86.69 Personal history of other diseases of the nervous system and sense organs; Z56.0 Unemployment, unspecified
CPT/HCPCS: 36415; 80053; 82962; 85027; 86780; 93005; 93010; Q0162; U0003

== ENCOUNTER 2020-07-05 11:41 | Inpatient (IN) | payer OTHER ==
--- NOTE | 2020-07-05 15:01 | HP ---
[facility] Rehab Assess/Revision - Admission History Admitted to Rehab from: [facility] Date of Admission to Rehab: 07/05/2020 - Vital signs Vital Signs: Vital Signs Period Temp Pulse Resp BP Sys/Snyder Pulse Ox Last 24 Hr 97.1 F 95 18 115/72 - Findings Detox History & Physical reviewed: Yes Concur with findings: Yes Comments/Additional Findings: for rehab as protocol Inpatient Rehab Admission - Rehab Decision to Admit Inpatient rehab admission?: Yes - Initial Determination Are CD services needed?: Yes Free of communicable disease: Yes Not in need of hospitalization: Yes - Rehab Admission Criteria Previous failed treatment: Yes Poor recovery environment: Yes Comorbidities: Yes Lacks judgement: No Patient is meeting Inpatient Rehab admission criteria:: Yes
[2020-07-05] MEDS ORDERED: MENTHOL/PHENOL 1 EACH UD MM PRN (15:04)
[2020-07-05] MEDS ORDERED: LOPERAMIDE HCL 2 MG CAPSULE PO PRN (15:04)
[2020-07-05] MEDS ORDERED: MAGNESIUM HYDROX 2400MG/30ML ORAL SUSPENSION 30 ML CUP PO PRN (15:04)
[2020-07-05] MEDS ORDERED: guaiFENesin 200 MG/10 ML 10 ML UNIT-DOSE CUPS PO PRN (15:04)
[2020-07-05] MEDS ORDERED: ACETAMINOPHEN 325 MG TABLET (FP) PO PRN (15:04)
[2020-07-05] MEDS ORDERED: MAGNESIUM CITRATE 300 ML BOTTLE PO PRN (15:04)
[2020-07-05] MEDS ORDERED: MAG HYDROX/AL HYDROX/SIMETH 30 ML UNIT-DOSE CUP PO PRN (15:04)
[2020-07-05] MEDS ORDERED: P-EPHED 60MG/TRIPROLIDI 2.5MG TABLET PO PRN (15:04)
[2020-07-05] MEDS ORDERED: ALBUTEROL SO4 HFA INHALER IH PRN (15:05)
[2020-07-05] MEDS: CEPHALEXIN MONOHYDRATE 500 MG CAPSULE (UD) PO SCH ×2 (17:44→23:07)
[2020-07-05] MEDS: MELATONIN 5 MG TABLETS PO SCH (21:28)
[2020-07-05] MEDS: QUEtiapine FUMARATE 100 MG TABLET (FP) PO SCH (21:29)
[2020-07-05] MEDS: THIAMINE HCL 100 MG TABLET (FP) PO SCH (21:29)
[2020-07-05] MEDS ORDERED: PT OWN MED DRAWER 7, Y5N ONE (21:31)
[2020-07-05] MEDS: BUDESONIDE/FORMETEROL FUMARATE 80/4.5 mcg INHALER IH SCH (21:31)
[2020-07-05] MEDS ORDERED: TRAZODONE HCL 50 MG PO SCH ×2 (22:00)
[2020-07-06] MEDS ORDERED: METHADONE HCL 10 MG TABLET ONE (05:52)
[2020-07-06] MEDS ORDERED: PT OWN MED DRAWER 7, Y5N ONE ×3 (05:53→10:09)
[2020-07-06] MEDS ORDERED: METHADONE HCL 40 MG DISPERSABLE TABLET ONE (05:53)
[2020-07-06] MEDS ORDERED: METHADONE HCL 10 MG TABLET PO SCH (06:00)
[2020-07-06] MEDS: CEPHALEXIN MONOHYDRATE 500 MG CAPSULE (UD) PO SCH ×3 (06:51→17:52)
[2020-07-06] MEDS: ENALAPRIL MALEATE 10 MG TABLET (FP) PO SCH (06:51)
[2020-07-06] MEDS: METHADONE 120 MG, METHADONE 20 MG PO SCH (06:51)
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
[2020-07-06] MEDS: NICOTINE 14 MG/24 HOURS TOPICAL PATCH TD SCH (10:07)
[2020-07-06] MEDS: PANTOPRAZOLE 40 MG TABLET PO SCH (10:07)
[2020-07-06] MEDS: PRENATAL VITAMINS W/ FOLIC ACID TABLET (FP) PO SCH (10:07)
[2020-07-06] MEDS: BUDESONIDE/FORMETEROL FUMARATE 80/4.5 mcg INHALER IH SCH ×2 (10:09→21:28)
[2020-07-06] MEDS: MELATONIN 5 MG TABLETS PO SCH (21:27)
[2020-07-06] MEDS: THIAMINE HCL 100 MG TABLET (FP) PO SCH (21:27)
[2020-07-06] MEDS: QUEtiapine FUMARATE 100 MG TABLET (FP) PO SCH (21:28)
[2020-07-06] MEDS: hydrOXYzine PAMOATE 25 MG CAPSULE (FP) PO PRN (21:28)
[2020-07-07] MEDS: CEPHALEXIN MONOHYDRATE 500 MG CAPSULE (UD) PO SCH ×5 (00:27→23:10)
[2020-07-07] MEDS ORDERED: METHADONE HCL 10 MG TABLET ONE (03:45)
[2020-07-07] MEDS ORDERED: METHADONE HCL 40 MG DISPERSABLE TABLET ONE (03:46)
[2020-07-07] MEDS: METHADONE 120 MG, METHADONE 20 MG PO SCH (06:36)
[2020-07-07] MEDS: ENALAPRIL MALEATE 10 MG TABLET (FP) PO SCH (07:26)
[2020-07-07] MEDS: NICOTINE POLACRILEX 4 MG GUM BUC PRN (10:47)
[2020-07-07] MEDS: BUDESONIDE/FORMETEROL FUMARATE 80/4.5 mcg INHALER IH SCH ×2 (10:47→21:52)
[2020-07-07] MEDS: NICOTINE 14 MG/24 HOURS TOPICAL PATCH TD SCH (10:48)
[2020-07-07] MEDS: PRENATAL VITAMINS W/ FOLIC ACID TABLET (FP) PO SCH (10:48)
[2020-07-07] MEDS: PANTOPRAZOLE 40 MG TABLET PO SCH (10:48)
[2020-07-07] MEDS: QUEtiapine FUMARATE 100 MG TABLET (FP) PO SCH (21:10)
[2020-07-07] MEDS: hydrOXYzine PAMOATE 25 MG CAPSULE (FP) PO PRN (21:11)
[2020-07-07] MEDS: MELATONIN 5 MG TABLETS PO SCH (21:12)
[2020-07-07] MEDS: THIAMINE HCL 100 MG TABLET (FP) PO SCH (21:12)
[2020-07-08] MEDS ORDERED: METHADONE HCL 10 MG TABLET ONE (06:06)
[2020-07-08] MEDS ORDERED: METHADONE HCL 40 MG DISPERSABLE TABLET ONE (06:07)
[2020-07-08] MEDS: CEPHALEXIN MONOHYDRATE 500 MG CAPSULE (UD) PO SCH ×4 (06:21→23:16)
[2020-07-08] MEDS: METHADONE 120 MG, METHADONE 20 MG PO SCH (06:21)
[2020-07-08] MEDS: ENALAPRIL MALEATE 10 MG TABLET (FP) PO SCH (06:43)
[2020-07-08] MEDS: IBUPROFEN 400 MG TABLET (FP) PO PRN (08:43)
[2020-07-08] MEDS ORDERED: SODIUM PHOSPHATE/NA BIPHOS 133 ML ENEMA RC ONE (10:27)
--- NOTE | 2020-07-08 10:27 | PN ---
S Progress Note (SOAP) Subjective: Pt is a 44 y/o male admitted to rehab on 07/05/[address] [place] [address]. pt is c/o right lateral abdomen pain x 4 months on/off. Pt is on Methadone 140 mg po daily. Reports no BM x 2 days. Denies nausea or vomiting. Objective: 07/08/20 10:26 Vital Signs - 24 hr 07/07/20 07/07/20 07/08/20 14:29 19:57 06:45 Temperature 98.0 F Pulse Rate 83 Respiratory 16 Rate Blood Pressure 109/69 O2 Sat by Pulse 97 96 96 Oximetry (%) alert o x 3 nad oob ambulating with steady gait Abdomen:++++fatty, soft, hypoactive bs, pain on palp, focally around right lateral abdomen, no redness or injury. Right Flank adipose tissue area on waist slightly more prominent on right than left side. Assessment: 07/08/20 10:26 Abdominal pain r/o constipation Plan: fleet enema x 1 Colace 300 mg po HS MOM prn as directed D/w pt will Re-evaluate pain if continues.
[2020-07-08] MEDS: BUDESONIDE/FORMETEROL FUMARATE 80/4.5 mcg INHALER IH SCH ×2 (11:03→21:44)
[2020-07-08] MEDS: PRENATAL VITAMINS W/ FOLIC ACID TABLET (FP) PO SCH (11:04)
[2020-07-08] MEDS: NICOTINE 14 MG/24 HOURS TOPICAL PATCH TD SCH (11:04)
[2020-07-08] MEDS: hydrOXYzine PAMOATE 25 MG CAPSULE (FP) PO PRN ×3 (11:04→21:43)
[2020-07-08] MEDS: PANTOPRAZOLE 40 MG TABLET PO SCH (11:04)
[2020-07-08] MEDS: NICOTINE POLACRILEX 4 MG GUM BUC PRN (11:06)
[2020-07-08] MEDS: THIAMINE HCL 100 MG TABLET (FP) PO SCH (21:42)
[2020-07-08] MEDS: DOCUSATE SODIUM 100 MG CAPSULE (FP) PO SCH (21:42)
[2020-07-08] MEDS: MELATONIN 5 MG TABLETS PO SCH (21:42)
[2020-07-08] MEDS: QUEtiapine FUMARATE 100 MG TABLET (FP) PO SCH (21:43)
[2020-07-09] MEDS ORDERED: METHADONE HCL 10 MG TABLET ONE (04:27)
[2020-07-09] MEDS ORDERED: METHADONE HCL 40 MG DISPERSABLE TABLET ONE (04:27)
[2020-07-09] MEDS: ENALAPRIL MALEATE 10 MG TABLET (FP) PO SCH (06:49)
[2020-07-09] MEDS: METHADONE 120 MG, METHADONE 20 MG PO SCH (06:49)
[2020-07-09] MEDS: CEPHALEXIN MONOHYDRATE 500 MG CAPSULE (UD) PO SCH ×2 (06:49→11:13)
[2020-07-09] MEDS: hydrOXYzine PAMOATE 25 MG CAPSULE (FP) PO PRN ×2 (06:50→22:14)
--- NOTE | 2020-07-09 10:55 | PN ---
[facility] Progress Note (SOAP) Subjective: Pt still c/o right flank pain, scale of 10/10. Denies fever, nausea, vomiting or diarrhea. Pt had reported this pain has been on/off for the past 4 months but getting worse. Pt completed Detox from Alcohol here at [facility] and was referred here to Rehab where he is currently in treatment. Objective: 07/09/20 10:55 Vital Signs - 24 hr 07/08/20 07/08/20 07/09/20 13:48 21:15 00:00 Temperature 97.1 F L Pulse Rate 77 Respiratory 18 Rate Blood Pressure 122/75 O2 Sat by Pulse 95 96 96 Oximetry (%) Laboratory Tests 07/06/20 07/07/20 07/08/20 08:23 07:23 06:20 POC Glucometer 164 104 76 07/09/20 06:48 POC Glucometer 98 Active Medications Generic Name Dose Route Start Last Admin Trade Name Freq PRN Reason Stop Dose Admin Acetaminophen 650 mg 07/05/20 15:04 Tylenol - PO Q4H PRN FEVER Al Hydroxide/Mg Hydroxide 30 ml 07/05/20 15:04 Mylanta Oral Suspension - PO Q6H PRN DYSPEPSIA Albuterol Sulfate 2 puff 07/05/20 15:05 Ventolin Hfa Inhaler - IH Q4H PRN ASTHMA Budesonide/Formoterol Fumarate 2 puff 07/05/20 22:00 07/08/20 21:44 Symbicort 80/4.5mcg - IH 2 puff BID MARTHA Administration Cephalexin HCl 500 mg 07/05/20 18:00 07/09/20 06:49 Keflex - PO 07/09/20 17:59 500 mg Q6HPO MARTHA Administration Docusate Sodium 300 mg 07/08/20 22:00 07/08/20 21:42 Colace - PO 300 mg HS MARTHA Administration Enalapril Maleate 20 mg 07/06/20 07:00 07/09/20 06:49 Vasotec - PO 20 mg AM MARTHA Administration Eucalyptus/Menthol/Phenol/Sorbitol 1 each 07/05/20 15:04 Cepastat Lozenge - MM Q4H PRN SORE THROAT Guaifenesin 10 ml 07/05/20 15:04 Robitussin - PO Q6H PRN COUGH Hydroxyzine Pamoate 25 mg 07/05/20 15:04 07/09/20 06:50 Vistaril - PO 25 mg Q4HWA PRN Administration ANXIETY Ibuprofen 400 mg 07/05/20 15:04 07/08/20 08:43 Motrin - PO 400 mg Q6H PRN Administration Pain Level 4-6 Loperamide HCl 4 mg 07/05/20 15:04 Imodium - PO Q6H PRN DIARRHEA Magnesium Citrate 300 ml 07/05/20 15:04 Citroma - PO Q48H PRN CONSTIPATION Magnesium Hydroxide 30 ml 07/05/20 15:04 07/08/20 11:08 Milk Of Magnesia - PO 30 ml DAILY PRN Administration CONSTIPATION Melatonin 5 mg 07/05/20 22:00 07/08/20 21:42 Melatonin PO 5 mg HS MARTHA Administration Methadone HCl 120 mg/ 140 mg 07/06/20 06:00 07/09/20 06:49 Methadone HCl 20 mg PO 07/12/20 05:59 140 mg DAILY@0600 MARTHA Administration Nicotine 14 mg 07/06/20 10:00 07/08/20 11:04 Nicoderm Patch - TD Not Given DAILY MARTHA Nicotine Polacrilex 4 mg 07/06/20 11:55 07/08/20 11:06 Nicorette Gum - BUC 4 mg Q2H PRN Administration NICOTINE REPLACEMENT RX Pantoprazole Sodium 40 mg 07/06/20 10:00 07/08/20 11:04 Protonix - PO 40 mg DAILY MARTHA Administration Multivit/Folic Acid/Iron 1 tab 07/06/20 10:00 07/08/20 11:04 Vitamins (Sjr) - PO 1 tab DAILY MARTHA Administration Pseudoephedrine/Triprolidine 1 combo 07/05/20 15:04 Actifed - PO TID PRN NASAL CONGESTION Quetiapine Fumarate 100 mg 07/05/20 22:00 07/08/20 21:43 Seroquel - PO 100 mg HS MARTHA Administration Thiamine HCl 100 mg 07/05/20 22:00 07/08/20 21:42 Vitamin B1 - PO 100 mg HS MARTHA Administration PE; Alert o x 3 nad oob ambulating with steady gait cardiac:s1 s2, rrr lungs:ctab abdomen:+bs-hypoactive, ++++fatty, nt to palp anteriorly but tender on lateral right from under breast region down to hip. extremities/skin:no edema- both LEs,skin intact; Right Forearm with two scabs- healing cellulitis and on Keflex. Assessment: 07/09/20 11:06 Right Flank Pain S/P Alcohol Detox Hx Hep C(pt claims treated) Plan: Transfer to [facility] for further evaluation. Pt may return to Rehab to continue treatment once evaluated and medically cleared.
[2020-07-09] MEDS: BUDESONIDE/FORMETEROL FUMARATE 80/4.5 mcg INHALER IH SCH ×2 (11:12→22:17)
[2020-07-09] MEDS: PANTOPRAZOLE 40 MG TABLET PO SCH (11:13)
[2020-07-09] MEDS: PRENATAL VITAMINS W/ FOLIC ACID TABLET (FP) PO SCH (11:13)
[2020-07-09] MEDS: IBUPROFEN 400 MG TABLET (FP) PO PRN (11:13)
[2020-07-09] MEDS: NICOTINE 14 MG/24 HOURS TOPICAL PATCH TD SCH (11:15)
[2020-07-09] MEDS: DOCUSATE SODIUM 100 MG CAPSULE (FP) PO SCH (22:13)
[2020-07-09] MEDS: QUEtiapine FUMARATE 100 MG TABLET (FP) PO SCH (22:13)
[2020-07-09] MEDS: THIAMINE HCL 100 MG TABLET (FP) PO SCH (22:14)
[2020-07-09] MEDS: MELATONIN 5 MG TABLETS PO SCH (22:14)
[2020-07-09] MEDS: NICOTINE POLACRILEX 4 MG GUM BUC PRN (22:15)
--- NOTE | 2020-07-10 00:30 | PN ---
S Progress Note Note: Returned from [facility] Ed after evaluation of abdominal pain. Ed visit reviewed. ED Discharge Information CT shows no evidence of intra-abdominal abscess, bowel obstruction, fluid collections, or acute pathology except for mild splenomegaly. ED Patient Discharge Instructions Patient Printed Discharge Instructions: DI for Abdominal Pain-Adult Additional Instructions: Please continue to use to remain active , drink plenty of fluids, and eat plenty of vegetables and fruit. Lungs CTA. Pulse Ox = 98% Abd: soft/BS+ Plan: Return to [facility] to complete rehab.
[2020-07-10] MEDS ORDERED: METHADONE HCL 10 MG TABLET ONE (04:04)
[2020-07-10] MEDS ORDERED: METHADONE HCL 40 MG DISPERSABLE TABLET ONE (04:04)
[2020-07-10] MEDS: ENALAPRIL MALEATE 10 MG TABLET (FP) PO SCH (06:28)
[2020-07-10] MEDS: METHADONE 120 MG, METHADONE 20 MG PO SCH (06:28)
[2020-07-10] MEDS: NICOTINE POLACRILEX 4 MG GUM BUC PRN ×2 (06:31→10:32)
[2020-07-10] MEDS: PANTOPRAZOLE 40 MG TABLET PO SCH (10:31)
[2020-07-10] MEDS: PRENATAL VITAMINS W/ FOLIC ACID TABLET (FP) PO SCH (10:31)
[2020-07-10] MEDS: hydrOXYzine PAMOATE 25 MG CAPSULE (FP) PO PRN ×2 (10:31→21:35)
[2020-07-10] MEDS: BUDESONIDE/FORMETEROL FUMARATE 80/4.5 mcg INHALER IH SCH ×2 (10:32→21:35)
[2020-07-10] MEDS: NICOTINE 14 MG/24 HOURS TOPICAL PATCH TD SCH (10:32)
[2020-07-10] MEDS: THIAMINE HCL 100 MG TABLET (FP) PO SCH (21:35)
[2020-07-10] MEDS: DOCUSATE SODIUM 100 MG CAPSULE (FP) PO SCH (21:35)
[2020-07-10] MEDS: QUEtiapine FUMARATE 100 MG TABLET (FP) PO SCH (21:35)
[2020-07-10] MEDS: MELATONIN 5 MG TABLETS PO SCH (21:35)
[2020-07-11] MEDS ORDERED: METHADONE HCL 40 MG DISPERSABLE TABLET ONE (04:12)
[2020-07-11] MEDS ORDERED: METHADONE HCL 10 MG TABLET ONE (04:12)
[2020-07-11] MEDS: METHADONE 120 MG, METHADONE 20 MG PO SCH (06:39)
[2020-07-11] MEDS: ENALAPRIL MALEATE 10 MG TABLET (FP) PO SCH (06:39)
[2020-07-11] MEDS: hydrOXYzine PAMOATE 25 MG CAPSULE (FP) PO PRN ×3 (06:42→21:46)
[2020-07-11] MEDS: NICOTINE POLACRILEX 4 MG GUM BUC PRN ×2 (06:42→10:29)
[2020-07-11] MEDS: PANTOPRAZOLE 40 MG TABLET PO SCH (10:28)
[2020-07-11] MEDS: BUDESONIDE/FORMETEROL FUMARATE 80/4.5 mcg INHALER IH SCH ×2 (10:28→21:47)
[2020-07-11] MEDS: PRENATAL VITAMINS W/ FOLIC ACID TABLET (FP) PO SCH (10:28)
[2020-07-11] MEDS: NICOTINE 14 MG/24 HOURS TOPICAL PATCH TD SCH (10:28)
[2020-07-11] MEDS: THIAMINE HCL 100 MG TABLET (FP) PO SCH (21:46)
[2020-07-11] MEDS: QUEtiapine FUMARATE 100 MG TABLET (FP) PO SCH (21:46)
[2020-07-11] MEDS: MELATONIN 5 MG TABLETS PO SCH (21:46)
[2020-07-11] MEDS: DOCUSATE SODIUM 100 MG CAPSULE (FP) PO SCH (21:47)
[2020-07-12] MEDS: ENALAPRIL MALEATE 10 MG TABLET (FP) PO SCH (06:56)
[2020-07-12] MEDS ORDERED: METHADONE HCL 10 MG TABLET PO SCH (07:45)
[2020-07-12] MEDS ORDERED: METHADONE HCL 10 MG TABLET ONE (07:56)
[2020-07-12] MEDS ORDERED: METHADONE HCL 40 MG DISPERSABLE TABLET ONE (07:57)
[2020-07-12] MEDS: METHADONE 120 MG, METHADONE 20 MG PO SCH (08:05)
[2020-07-12] MEDS: hydrOXYzine PAMOATE 25 MG CAPSULE (FP) PO PRN ×3 (10:41→22:19)
[2020-07-12] MEDS: PANTOPRAZOLE 40 MG TABLET PO SCH (10:41)
[2020-07-12] MEDS: NICOTINE 14 MG/24 HOURS TOPICAL PATCH TD SCH (10:41)
[2020-07-12] MEDS: PRENATAL VITAMINS W/ FOLIC ACID TABLET (FP) PO SCH (10:41)
[2020-07-12] MEDS: BUDESONIDE/FORMETEROL FUMARATE 80/4.5 mcg INHALER IH SCH ×2 (10:42→22:43)
[2020-07-12] MEDS: NICOTINE POLACRILEX 4 MG GUM BUC PRN ×2 (10:44→18:13)
[2020-07-12] MEDS: QUEtiapine FUMARATE 100 MG TABLET (FP) PO SCH (22:19)
[2020-07-12] MEDS: DOCUSATE SODIUM 100 MG CAPSULE (FP) PO SCH (22:19)
[2020-07-12] MEDS: MELATONIN 5 MG TABLETS PO SCH (22:20)
[2020-07-12] MEDS: THIAMINE HCL 100 MG TABLET (FP) PO SCH (22:21)
[2020-07-13] MEDS ORDERED: METHADONE HCL 10 MG TABLET ONE (04:06)
[2020-07-13] MEDS ORDERED: METHADONE HCL 40 MG DISPERSABLE TABLET ONE (04:06)
[2020-07-13] MEDS: METHADONE 120 MG, METHADONE 20 MG PO SCH (06:46)
[2020-07-13] MEDS: ENALAPRIL MALEATE 10 MG TABLET (FP) PO SCH (06:47)
[2020-07-13] MEDS: NICOTINE POLACRILEX 4 MG GUM BUC PRN ×2 (06:48→10:57)
[2020-07-13] MEDS: hydrOXYzine PAMOATE 25 MG CAPSULE (FP) PO PRN ×4 (06:48→21:44)
[2020-07-13] MEDS: BUDESONIDE/FORMETEROL FUMARATE 80/4.5 mcg INHALER IH SCH ×2 (10:56→21:44)
[2020-07-13] MEDS: PANTOPRAZOLE 40 MG TABLET PO SCH (10:56)
[2020-07-13] MEDS: NICOTINE 14 MG/24 HOURS TOPICAL PATCH TD SCH (10:56)
[2020-07-13] MEDS: PRENATAL VITAMINS W/ FOLIC ACID TABLET (FP) PO SCH (10:56)
[2020-07-13] MEDS: METHYL SALICYLATE/MENTHOL OINT 30 GM TUBE TP SCH ×2 (14:35→21:42)
[2020-07-13] MEDS: DOCUSATE SODIUM 100 MG CAPSULE (FP) PO SCH (21:42)
[2020-07-13] MEDS: THIAMINE HCL 100 MG TABLET (FP) PO SCH (21:43)
[2020-07-13] MEDS: QUEtiapine FUMARATE 100 MG TABLET (FP) PO SCH (21:43)
[2020-07-13] MEDS: MELATONIN 5 MG TABLETS PO SCH (21:44)
[2020-07-14] MEDS ORDERED: METHADONE HCL 10 MG TABLET ONE (03:55)
[2020-07-14] MEDS ORDERED: METHADONE HCL 40 MG DISPERSABLE TABLET ONE (03:55)
[2020-07-14] MEDS: METHADONE 120 MG, METHADONE 20 MG PO SCH (06:44)
[2020-07-14] MEDS: ENALAPRIL MALEATE 10 MG TABLET (FP) PO SCH (06:44)
[2020-07-14] MEDS: NICOTINE POLACRILEX 4 MG GUM BUC PRN ×3 (06:46→21:51)
[2020-07-14] MEDS: hydrOXYzine PAMOATE 25 MG CAPSULE (FP) PO PRN ×3 (06:47→21:49)
[2020-07-14] MEDS: PRENATAL VITAMINS W/ FOLIC ACID TABLET (FP) PO SCH (10:47)
[2020-07-14] MEDS: PANTOPRAZOLE 40 MG TABLET PO SCH (10:47)
[2020-07-14] MEDS: NICOTINE 14 MG/24 HOURS TOPICAL PATCH TD SCH (10:48)
[2020-07-14] MEDS: METHYL SALICYLATE/MENTHOL OINT 30 GM TUBE TP SCH ×2 (10:48→21:50)
[2020-07-14] MEDS: BUDESONIDE/FORMETEROL FUMARATE 80/4.5 mcg INHALER IH SCH ×2 (10:49→21:49)
--- NOTE | 2020-07-14 11:07 | PN ---
[facility] Progress Note Note: c/o dry itchy feet anf requesting fungal cream. Vital Signs - 24 hr 07/14/20 06:41 Temperature 97.1 F L Pulse Rate 83 Respiratory 18 Rate Blood Pressure 114/74 O2 Sat by Pulse 94 L Oximetry (%) Alert o x 3 nad oob ambulating with staedy gait skin:dry scaly feet. No swelling, redness or wound. Tinea Pedis Tinactin cream apply as directed
[2020-07-14] MEDS: TOLNAFTATE 1% CREAM 15 GM TUBE TP SCH ×2 (12:06→21:49)
[2020-07-14] MEDS: THIAMINE HCL 100 MG TABLET (FP) PO SCH (21:49)
[2020-07-14] MEDS: MELATONIN 5 MG TABLETS PO SCH (21:50)
[2020-07-14] MEDS: DOCUSATE SODIUM 100 MG CAPSULE (FP) PO SCH (21:50)
[2020-07-14] MEDS: QUEtiapine FUMARATE 100 MG TABLET (FP) PO SCH (21:50)
[2020-07-15] MEDS ORDERED: METHADONE HCL 40 MG DISPERSABLE TABLET ONE (03:47)
[2020-07-15] MEDS ORDERED: METHADONE HCL 10 MG TABLET ONE (03:47)
[2020-07-15] MEDS: hydrOXYzine PAMOATE 25 MG CAPSULE (FP) PO PRN ×3 (06:20→21:30)
[2020-07-15] MEDS: ENALAPRIL MALEATE 10 MG TABLET (FP) PO SCH (06:20)
[2020-07-15] MEDS: METHADONE 120 MG, METHADONE 20 MG PO SCH (06:20)
[2020-07-15] MEDS: NICOTINE POLACRILEX 4 MG GUM BUC PRN ×3 (06:21→21:31)
[2020-07-15] MEDS: PRENATAL VITAMINS W/ FOLIC ACID TABLET (FP) PO SCH (09:22)
[2020-07-15] MEDS: PANTOPRAZOLE 40 MG TABLET PO SCH (09:22)
[2020-07-15] MEDS: NICOTINE 14 MG/24 HOURS TOPICAL PATCH TD SCH (09:22)
[2020-07-15] MEDS: METHYL SALICYLATE/MENTHOL OINT 30 GM TUBE TP SCH ×2 (09:24→21:31)
[2020-07-15] MEDS: TOLNAFTATE 1% CREAM 15 GM TUBE TP SCH ×2 (09:24→21:52)
[2020-07-15] MEDS: BUDESONIDE/FORMETEROL FUMARATE 80/4.5 mcg INHALER IH SCH ×2 (09:25→21:30)
[2020-07-15] MEDS: DOCUSATE SODIUM 100 MG CAPSULE (FP) PO SCH (21:30)
[2020-07-15] MEDS: THIAMINE HCL 100 MG TABLET (FP) PO SCH (21:30)
[2020-07-15] MEDS: QUEtiapine FUMARATE 100 MG TABLET (FP) PO SCH (21:30)
[2020-07-15] MEDS: MELATONIN 5 MG TABLETS PO SCH (21:31)
[2020-07-16] MEDS: METHADONE 120 MG, METHADONE 20 MG PO SCH (06:32)
[2020-07-16] MEDS ORDERED: METHADONE HCL 10 MG TABLET ONE (06:32)
[2020-07-16] MEDS ORDERED: METHADONE HCL 40 MG DISPERSABLE TABLET ONE (06:32)
[2020-07-16] MEDS: ENALAPRIL MALEATE 10 MG TABLET (FP) PO SCH (06:32)
[2020-07-16] MEDS: hydrOXYzine PAMOATE 25 MG CAPSULE (FP) PO PRN ×4 (06:32→21:36)
[2020-07-16 07:09] VITALS: TEMP 97.1
--- NOTE | 2020-07-16 09:25 | PN ---
Psychiatric Progress Note Vital Signs: Vital Signs Period Temp Pulse Resp BP Sys/Snyder Pulse Ox Last 24 Hr 97.1 F 75 18 110/79 96-97 Date of Session: 07/16/20 Chief Complaint:: " I'm not sleeping." HPI: Patient admitted to for acohol, opioid, cocaine and benzodiazepine dependence. ROS: Patient is ambulatory, alert + oriented X3. Current Medications: Active Medications Generic Name Dose Route Start Last Admin Trade Name Freq PRN Reason Stop Dose Admin Acetaminophen 650 mg 07/05/20 15:04 Tylenol - PO Q4H PRN FEVER Al Hydroxide/Mg Hydroxide 30 ml 07/05/20 15:04 07/11/20 20:37 Mylanta Oral Suspension - PO 30 ml Q6H PRN Administration DYSPEPSIA Albuterol Sulfate 2 puff 07/05/20 15:05 Ventolin Hfa Inhaler - IH Q4H PRN ASTHMA Budesonide/Formoterol Fumarate 2 puff 07/05/20 22:00 07/15/20 21:30 Symbicort 80/4.5mcg - IH 2 puff BID MARTHA Administration Docusate Sodium 300 mg 07/08/20 22:00 07/15/20 21:30 Colace - PO Not Given HS MARTHA Enalapril Maleate 20 mg 07/06/20 07:00 07/16/20 06:32 Vasotec - PO 20 mg AM MARTHA Administration Eucalyptus/Menthol/Phenol/Sorbitol 1 each 07/05/20 15:04 Cepastat Lozenge - MM Q4H PRN SORE THROAT Guaifenesin 10 ml 07/05/20 15:04 Robitussin - PO Q6H PRN COUGH Hydroxyzine Pamoate 25 mg 07/05/20 15:04 07/16/20 06:32 Vistaril - PO 25 mg Q4HWA PRN Administration ANXIETY Ibuprofen 400 mg 07/05/20 15:04 07/09/20 11:13 Motrin - PO 400 mg Q6H PRN Administration Pain Level 4-6 Loperamide HCl 4 mg 07/05/20 15:04 Imodium - PO Q6H PRN DIARRHEA Magnesium Citrate 300 ml 07/05/20 15:04 Citroma - PO Q48H PRN CONSTIPATION Magnesium Hydroxide 30 ml 07/05/20 15:04 07/08/20 11:08 Milk Of Magnesia - PO 30 ml DAILY PRN Administration CONSTIPATION Melatonin 5 mg 07/05/20 22:00 07/15/20 21:31 Melatonin PO 5 mg HS MARTHA Administration Methadone HCl 120 mg/ 140 mg 07/16/20 06:00 07/16/20 06:32 Methadone HCl 20 mg PO 07/23/20 05:59 140 mg DAILY@0600 MARTHA Administration Methyl Salicylate 1 applic 07/13/20 13:30 07/15/20 21:31 Galindo-Sim - TP Not Given BID MARTHA Nicotine 14 mg 07/06/20 10:00 07/15/20 09:22 Nicoderm Patch - TD 14 mg DAILY MARTHA Administration Nicotine Polacrilex 4 mg 07/06/20 11:55 07/15/20 21:31 Nicorette Gum - BUC 4 mg Q2H PRN Administration NICOTINE REPLACEMENT RX Pantoprazole Sodium 40 mg 07/06/20 10:00 07/15/20 09:22 Protonix - PO 40 mg DAILY MARTHA Administration Multivit/Folic Acid/Iron 1 tab 07/06/20 10:00 07/15/20 09:22 Vitamins (Sjr) - PO 1 tab DAILY MARTHA Administration Pseudoephedrine/Triprolidine 1 combo 07/05/20 15:04 Actifed - PO TID PRN NASAL CONGESTION Quetiapine Fumarate 100 mg 07/05/20 22:00 07/15/20 21:30 Seroquel - PO 100 mg HS MARTHA Administration Thiamine HCl 100 mg 07/05/20 22:00 07/15/20 21:30 Vitamin B1 - PO 100 mg HS MARTHA Administration Tolnaftate 1 applic 07/14/20 12:15 07/15/20 21:52 Tinactin 1% Cream - TP 1 applic BID MARTHA Administration Medication(s) Change(s): Will order Seroquel 150mg HS + Belsomra 10mg HS PRN Current Side Effect: No Lab tests ordered: No Lab tests reviewed: Yes Provider note:: Chart reviewed. Dr. Watkins's note read and appreciated. Patient with a history of schizoaffective disorder and is currently treated with Seroquel 100mg HS. Patient is c/o poor sleep. Will d/c Seroquel 100mg. Will order Seroquel 150mg HS + Belsomra 10mg HS PRN. Patient also educated on the importance of proper sleep hygiene. Patient satisifed and receptive to feedback. Benefits and side effects discussed. Verbal consent given. Total face to face time:: 20 Mental Status Exam - Mental Status Exam Alert and Oriented to: Time, Place, Person Cognitive Function: Good Patient Appearance: Well Groomed Mood: Hopeful Affect: Appropriate Patient Behavior: Appropriate, Cooperative Speech Pattern: Appropriate Voice Loudness: Normal Thought Process: Intact, Goal Oriented Thought Disorder: Not Present Hallucinations: Denies Suicidal Ideation: Denies Homicidal Ideation: Denies Insight/Judgement: Poor Sleep: Poorly Appetite: Fair Muscle strength/Tone: Normal Gait/Station: Normal Psychiatric Treatment Plan - Problem List (1) Alcohol dependence Current Visit: Yes (2) Sedative hypnotic or anxiolytic dependence Current Visit: Yes (3) Cocaine dependence Current Visit: No Qualifiers: Substance use status: uncomplicated Qualified Code(s): F14.20 - Cocaine dependence, uncomplicated (4) Sedative, hypnotic or anxiolytic dependence, uncomplicated Current Visit: Yes (5) Substance-induced sleep disorder Current Visit: Yes (6) Opioid dependence on agonist therapy Current Visit: Yes Comment: On mehtadone maintenance but continues to use illicit opiates IV (7) Schizoaffective disorder Current Visit: Yes
[2020-07-16] MEDS: PRENATAL VITAMINS W/ FOLIC ACID TABLET (FP) PO SCH (09:41)
[2020-07-16] MEDS: PANTOPRAZOLE 40 MG TABLET PO SCH (09:41)
[2020-07-16] MEDS: BUDESONIDE/FORMETEROL FUMARATE 80/4.5 mcg INHALER IH SCH ×2 (09:41→21:34)
[2020-07-16] MEDS: TOLNAFTATE 1% CREAM 15 GM TUBE TP SCH ×2 (09:42→21:35)
[2020-07-16] MEDS: METHYL SALICYLATE/MENTHOL OINT 30 GM TUBE TP SCH ×2 (09:42→21:35)
[2020-07-16] MEDS: NICOTINE POLACRILEX 4 MG GUM BUC PRN ×2 (09:42→21:38)
[2020-07-16] MEDS: NICOTINE 14 MG/24 HOURS TOPICAL PATCH TD SCH (09:42)
[2020-07-16] MEDS: DOCUSATE SODIUM 100 MG CAPSULE (FP) PO SCH (21:36)
[2020-07-16] MEDS: THIAMINE HCL 100 MG TABLET (FP) PO SCH (21:36)
[2020-07-16] MEDS: MELATONIN 5 MG TABLETS PO SCH (21:36)
[2020-07-16] MEDS ORDERED: SUVOREXANT 10 MG TABLET PO PRN (22:00)
[2020-07-16] MEDS ORDERED: QUEtiapine FUMARATE 50 MG TABLET PO SCH (22:00)
[2020-07-17] MEDS ORDERED: METHADONE HCL 10 MG TABLET ONE (05:14)
[2020-07-17] MEDS ORDERED: METHADONE HCL 40 MG DISPERSABLE TABLET ONE (05:15)
[2020-07-17] MEDS: METHADONE 120 MG, METHADONE 20 MG PO SCH (06:49)
[2020-07-17] MEDS: ENALAPRIL MALEATE 10 MG TABLET (FP) PO SCH (06:50)
[2020-07-17] MEDS: NICOTINE POLACRILEX 4 MG GUM BUC PRN (06:52)
[2020-07-17 07:13] VITALS: BP 120/92; PULSE 87
[2020-07-17] MEDS: METHYL SALICYLATE/MENTHOL OINT 30 GM TUBE TP SCH (09:27)
[2020-07-17] MEDS: PANTOPRAZOLE 40 MG TABLET PO SCH (09:27)
[2020-07-17] MEDS: PRENATAL VITAMINS W/ FOLIC ACID TABLET (FP) PO SCH (09:27)
[2020-07-17] MEDS: BUDESONIDE/FORMETEROL FUMARATE 80/4.5 mcg INHALER IH SCH (09:27)
[2020-07-17] MEDS: NICOTINE 14 MG/24 HOURS TOPICAL PATCH TD SCH (09:27)
[2020-07-17] MEDS: TOLNAFTATE 1% CREAM 15 GM TUBE TP SCH (09:28)
--- NOTE | 2020-07-17 09:35 | DS ---
[facility] Rehab Discharge Summary - [facility] Rehab Discharge Summary Admission Date: 07/05/20 Discharge Date: 07/17/20 - History Present History: Alcohol dependence, Opioid dependence Pertinent Past History: DM, GERD,Depression - Discharge Physical Exam Vital Signs: Vital Signs Temperature 97.1 F L 07/17/20 07:12 Pulse Rate 87 07/17/20 07:12 Respiratory Rate 20 07/17/20 07:12 Blood Pressure 120/92 07/17/20 07:12 O2 Sat by Pulse Oximetry (%) 96 07/17/20 07:12 Pertinent Admission Physical Exam Findings: Laboratory Last Values POC Glucometer 93 UNITS (80-120) 07/17/20 06:48 - Treatment Discharge Condition: Responded well - Medication Discharge Medications: Ambulatory Orders SYMBICORT 80/4.5mcg - 2 puff IH BID 12/19/19 Quetiapine Fumarate [Seroquel -] 100 mg PO HS #30 tablet 12/22/19 Albuterol Sulfate Inhaler - [Ventolin HFA Inhaler -] 2 inh PO Q6H PRN #1 inhaler 07/04/20 Cephalexin Monohydrate [Keflex -] 500 mg PO Q6HPO 5 Days #20 capsule 07/04/20 Enalapril Maleate [Vasotec] 20 tablet PO AM #14 tablet 07/04/20 Pantoprazole Sodium [Protonix] 40 mg PO DAILY 07/05/20 Trazodone HCl 50 mg PO HS 07/05/20 - Medication-Assisted Treatment (MAT) Medication-Assisted Treatment (MAT): No - Discharge Instructions Diet, activity, other medical instructions: Diet: 1800 ADA Activity: As tolerated Other medical instructions: Follow up with PCP within 2 weeks - Diagnosis (1) Alcohol dependence with withdrawal, uncomplicated Status: Acute (2) Methadone maintenance therapy patient Status: Acute (3) Acid reflux Status: Chronic Qualifiers: Esophagitis presence: without esophagitis Qualified Code(s): K21.9 - Gastro-esophageal reflux disease without esophagitis (4) Diabetes mellitus Status: Chronic Qualifiers: Diabetes mellitus type: type 2 Diabetes mellitus retirement insulin use: without salvage determiner use Diabetes mellitus complication status: without complication Qualified Code(s): E11.9 - Type 2 diabetes mellitus without complications (5) Nicotine dependence Status: Chronic Qualifiers: Nicotine product type: cigarettes Substance use status: uncomplicated Qualified Code(s): F17.210 - Nicotine dependence, cigarettes, uncomplicated - AMA Did Patient Leave Against Medical Advice: No Additional Comments: Patient requested early discharge
== END 2020-07-17 10:25 | disposition home or self-care (01) | DRG 772 ==
LOC: YASAS 11:41 → Y3E 11:43 → Y5N 07-06 14:41
PROVIDERS: ADMIT Allergy & Immunology; ATTEND Allergy & Immunology
PROC: HZ42ZZZ Group Counseling for Substance Abuse Treatment, Cognitive-Behavioral (ICD-10-PCS; principal; 2020-07-05)
DX: F10.20 Alcohol dependence, uncomplicated (principal); F11.20 Opioid dependence, uncomplicated; F13.20 Sedative, hypnotic or anxiolytic dependence, uncomplicated; F14.20 Cocaine dependence, uncomplicated; F17.210 Nicotine dependence, cigarettes, uncomplicated; F19.282 Other psychoactive substance dependence with psychoactive substance-induced sleep disorder; F25.9 Schizoaffective disorder, unspecified; F32.9 Major depressive disorder, single episode, unspecified; I10 Essential (primary) hypertension; J45.909 Unspecified asthma, uncomplicated; K21.9 Gastro-esophageal reflux disease without esophagitis; B35.3 Tinea pedis; B18.2 Chronic viral hepatitis C; R10.31 Right lower quadrant pain; R10.9 Unspecified abdominal pain; Z62.810 Personal history of physical and sexual abuse in childhood; E66.9 Obesity, unspecified; Z68.38 Body mass index [BMI] 38.0-38.9, adult; Z86.69 Personal history of other diseases of the nervous system and sense organs
CPT/HCPCS: 82962

== ENCOUNTER 2020-07-09 13:27 | Emergency (ER) | payer OTHER ==
[2020-07-09 13:32] VITALS: BP 118/63; PULSE 88; TEMP 98.3; BMI 35.4
[2020-07-09] MEDS ORDERED: SODIUM CHLORIDE 1,000 ML IV STA (13:54)
[2020-07-09] MEDS ORDERED: ACETAMINOPHEN 1000 MG/100 ML VIAL (NON FORMULARY) IVPB ONE (13:54)
[2020-07-09 15:39] LABS: BASO % 0.6 % (0-2.0); EOS % 3.3 % (0-4.5); HEMATOCRIT 34.2 % (35.4-49); HEMOGLOBIN 11.2 GM/dL (11.7-16.9); LYMPH % 27.3 % (8-40); MCH 28.1 pg (25.7-33.7); MCHC 32.9 g/dl (32.0-35.9); MEAN CELL VOLUME 85.4 fl (80-96); MEAN PLT VOLUME 9.7 fl (7.5-11.1); MONO % 11.4 % (3.8-10.2); NEUT % 57.4 % (42.8-82.8); PLATELET COUNT 183 K/MM3 (134-434); RDW 17.4 % (11.9-15.9); WHITE BLOOD COUNT 5.3 K/mm3 (4.0-10.0)
--- NOTE | 2020-07-09 16:03 | PDOC ---
History of Present Illness - General Chief Complaint: Pain, Acute Stated Complaint: ABD PAIN Time Seen by Provider: 07/09/20 13:46 History Source: Patient Exam Limitations: No Limitations - History of Present Illness Travel History: No Initial Comments: 07/09/20 15:59 44-year-old male presents to ED with complaints of right flank pain for the past 3 days worsened with movement. Patient denies abdominal distention, fever, nausea, diarrhea or constipation. Patient currently at [facility] for multi- substance abuse and has been receiving milk of magnesia and other stool softeners with no improvement. Patient states did not mention that he was constipated nor does he have rectal pressure or history of constipation. patient also denies history of pancreatitis or liver disease. Patient denies any chest pain difficulty breathing, rash or urinary complaints at this time 07/09/20 16:01 Timing/Duration: reports: intermittent Quality: reports: moderate, cramping, sharpness Abdominal Pain Onset Location: reports: flank Pain Radiation: reports: no radiation Aggravating Factors: improves with: Movement Alleviating Factors: improves with: Rest Past History - Travel History Traveled outside of the country in the last 30 days: No Close contact w/someone who was outside of country & ill: No - Medical History Allergies/Adverse Reactions: Allergies Allergy/AdvReac Type Severity Reaction Status Date / Time No Known Allergies Allergy Verified 07/09/20 13:28 Home Medications: Ambulatory Orders SYMBICORT 80/4.5mcg - 2 puff IH BID 12/19/19 Quetiapine Fumarate [Seroquel -] 100 mg PO HS #30 tablet 12/22/19 Albuterol Sulfate Inhaler - [Ventolin HFA Inhaler -] 2 inh PO Q6H PRN #1 inhaler 07/04/20 Cephalexin Monohydrate [Keflex -] 500 mg PO Q6HPO 5 Days #20 capsule 07/04/20 Enalapril Maleate [Vasotec] 20 tablet PO AM #14 tablet 07/04/20 Pantoprazole Sodium [Protonix] 40 mg PO DAILY 07/05/20 Trazodone HCl 50 mg PO HS 07/05/20 Anemia: No Asthma: Yes Cancer: No Cardiac Disorders: No CVA: No COPD: No CHF: No Dementia: No Diabetes: Yes GI Disorders: Yes (GERD) Disorders: No HTN: Yes Hypercholesterolemia: No Kidney Stones: No Liver Disease: No Seizures: No Thyroid Disease: No - Surgical History Abdominal Surgery: No Appendectomy: No Cardiac Surgery: No Cholecystectomy: No Lung Surgery: No Neurologic Surgery: No Orthopedic Surgery: No - Reproductive History Testicular Surgery: No - Immunization History Immunization Up to Date: Yes - Psycho-Social/Smoking History Patient Lives Alone: No Smoking History: Current every day smoker Have you smoked in the past 12 months: Yes Number of Cigarettes Smoked Daily: 10 Information on smoking cessation initiated: No 'Breaking Loose' booklet given: 06/30/20 - Substance Abuse Hx (Audit-C & DAST Scrn) How often the patient has a drink containing alcohol: 4 0r more times/wk Number of drinks the patient has on a typical day: 7 to 9 How often the patient has six or more drinks on one occasion: Daily or almost daily Score: In Men: 4 or > Positive; In Women: 3 or > Positive: 11 Screen Result (Pos requires Nsg. Audit-10AR): Positive In the last yr the pt used illegal drug/Rx for NonMed reason: Yes Score: Yes response is considered Positive: 1 Screen Result (Positive result requires Nsg. DAST-10): Positive Abd/GI Specific PMHX - Complaint Specific PMHX Hepatitis: No Pancreatitis: No Review of Systems - Review of Systems Able to Perform ROS?: Yes Constitutional: No: Symptoms Reported HEENTM: No: Symptoms Reported Respiratory: No: Symptoms reported Cardiac (ROS): No: Symptoms Reported ABD/GI: Yes: Abdominal cramping : Yes: Flank Pain Musculoskeletal: No: Symptoms Reported Integumentary: No: Symptoms Reported Neurological: No: Symptoms reported *Physical Exam - Vital Signs Last Vital Signs Temp Pulse Resp BP Pulse Ox 98.3 F 88 20 118/63 100 07/09/20 13:29 07/09/20 13:29 07/09/20 13:29 07/09/20 13:29 07/09/20 13:29 - Physical Exam General Appearance: Yes: Nourished, Appropriately Dressed. No: Apparent Distress HEENT: positive: EOMI. negative: Pale Conjunctivae Neck: positive: Normal Thyroid, Supple Respiratory/Chest: positive: Lungs Clear, Normal Breath Sounds. negative: Respiratory Distress, Accessory Muscle Use Cardiovascular: positive: Regular Rhythm, Regular Rate. negative: Murmur Gastrointestinal/Abdominal: positive: Soft, Tenderness (Right upper quadrant right flank right lower quadrant). negative: Distended, Guarding, Rebound, H ernia Musculoskeletal: positive: CVA Tenderness (R) (Mild) Extremity: positive: Normal Inspection Integumentary: positive: Normal Color, Warm, Moist Neurologic: positive: Motor Strength 5/5 (Ambulatory) ED Treatment Course - LABORATORY CBC & Chemistry Diagram: 07/09/20 14:00 07/09/20 14:00 - ADDITIONAL ORDERS Additional order review: 07/09/20 14:00 RBC 4.00 MCV 85.4 MCHC 32.9 RDW 17.4 H MPV 9.7 Neutrophils % 57.4 Lymphocytes % 27.3 Monocytes % 11.4 H Eosinophils % 3.3 Basophils % 0.6 - Medications Given in the ED: ED Medications Discontinued Medications Generic Name Dose Route Start Last Admin Trade Name Freq PRN Reason Stop Dose Admin Acetaminophen 1,000 mg 07/09/20 13:54 07/09/20 15:22 Ofirmev Injection - IVPB 07/09/20 13:55 1,000 mg ONCE ONE Administration Sodium Chloride 1,000 mls @ 1,000 mls/hr 07/09/20 13:54 07/09/20 15:22 Normal Saline - IV 07/09/20 14:53 1,000 mls/hr ASDIR STA Administration Medical Decision Making - Medical Decision Making 07/09/20 16:03 Chief complaint: Patient with right abdominal pain greater in the right flank to right upper quadrant area. Patient with history of alcohol and drug abuse but denies any history of pancreatitis. Currently on stool softeners and milk of mag with no improvement despite no complaints of constipation. Exam: Patient with tenderness to the right CVA right flank right upper quadrant. Negative McBurney's negative Betancourt sign. Plan: Labs, fluids, urine IV Tylenol and will consider imaging once labs are reviewed. 07/09/20 16:59 Laboratory Tests 07/09/20 07/09/20 14:00 14:00 WBC 5.3 Hgb 11.2 L Hct 34.2 L RDW 17.4 H Absolute Neuts (auto) 3.0 Monocytes % 11.4 H Eosinophils % 3.3 Basophils % 0.6 Nucleated RBC % 0 Sodium 141 Potassium 5.2 H Chloride 108 H Carbon Dioxide 26 Anion Gap 7 L BUN 13.3 Creatinine 0.9 Est GFR (CKD-EPI)AfAm 118.30 Est GFR (CKD-EPI)NonAf 102.07 Random Glucose 117 H Calcium 8.5 Magnesium 2.1 Total Bilirubin 0.4 AST 54 H ALT 42 Alkaline Phosphatase 98 Total Protein 7.2 Albumin 3.0 L Lipase 62 L 07/09/20 17:27 CT shows no evidence of intra-abdominal abscess, bowel obstruction, fluid collections, or acute pathology except for mild splenomegaly. urine pending 07/09/20 17:48 Laboratory Tests 07/09/20 16:55 Urine Ketones Trace H Ur Leukocyte Esterase Negative Discharge - Discharge Information Problems reviewed: No Clinical Impression/Diagnosis: Right sided abdominal pain Condition: Good Disposition: HOME - Follow up/Referral - Patient Discharge Instructions Patient Printed Discharge Instructions: DI for Abdominal Pain-Adult Additional Instructions: Please continue to use to remain active , drink plenty of fluids, and eat plenty of vegetables and fruit. - Post Discharge Activity
[2020-07-09 16:19] LABS: BILIRUBIN,TOTAL 0.4 mg/dL (0.2-1); BLOOD UREA NITROGEN 13.3 mg/dL (7-18); CALCIUM 8.5 mg/dL (8.5-10.1); CREATININE 0.9 mg/dL (0.55-1.3); MAGNESIUM 2.1 mg/dL (1.8-2.4); POTASSIUM 5.2 mmol/L (3.5-5.1); TOT PROT 7.2 g/dl (6.4-8.2)
[2020-07-09 17:39] LABS: URINE APPEARANCE CLEAR; URINE BILIRUBIN NEGATIVE (NEGATIVE); URINE COLOR YELLOW; URINE GLUCOSE (UA) NEGATIVE (NEGATIVE); URINE KETONE TRACE (NEGATIVE); URINE LEUK ESTERASE NEGATIVE (NEGATIVE); URINE NITRITE NEGATIVE (NEGATIVE); URINE PROTEIN NEGATIVE (NEGATIVE)
== END 2020-07-09 19:30 | disposition home or self-care (01) ==
LOC: JER 13:27
PROC: 3E0333Z Introduction of Anti-inflammatory into Peripheral Vein, Percutaneous Approach (ICD-10-PCS; principal; 2020-07-09)
PROC: 3E033GC Introduction of Other Therapeutic Substance into Peripheral Vein, Percutaneous Approach (ICD-10-PCS; 2020-07-09)
DX: R10.9 Unspecified abdominal pain (principal)
CPT/HCPCS: 36415; 74176-TC; 80053; 81003; 83690; 83735; 85025; 99284-25; J0131

== ENCOUNTER 2020-10-27 11:03 | Inpatient (IN) | payer OTHER ==
[2020-10-27] MEDS ORDERED: ACETAMINOPHEN 325 MG TABLET (FP) PO PRN (11:34)
[2020-10-27] MEDS ORDERED: P-EPHED 60MG/TRIPROLIDI 2.5MG TABLET PO PRN (11:34)
[2020-10-27] MEDS ORDERED: LOPERAMIDE HCL 2 MG CAPSULE PO PRN (11:34)
[2020-10-27] MEDS ORDERED: MAGNESIUM CITRATE 300 ML BOTTLE PO PRN (11:34)
[2020-10-27] MEDS ORDERED: guaiFENesin 200 MG/10 ML 10 ML UNIT-DOSE CUPS PO PRN (11:34)
[2020-10-27] MEDS ORDERED: MENTHOL/PHENOL 1 EACH UD MM PRN (11:34)
[2020-10-27] MEDS ORDERED: IBUPROFEN 400 MG TABLET (FP) PO PRN (11:34)
[2020-10-27] MEDS ORDERED: SUVOREXANT 10 MG TABLET PO PRN (11:38)
[2020-10-27] MEDS: LIDOCAINE 5% TOPICAL PATCH TP SCH (14:00)
[2020-10-27] MEDS: hydrOXYzine PAMOATE 25 MG CAPSULE (FP) PO PRN (14:01)
[2020-10-27] MEDS: NICOTINE POLACRILEX 2 MG GUM BUC PRN ×2 (14:02→21:38)
[2020-10-27] MEDS: metFORMIN HCL 500 MG TABLET (FP) PO SCH ×2 (14:02→16:41)
[2020-10-27] MEDS ORDERED: INSULIN SLIDING SCALE (NOVOLOG) 1 VIAL SQ SCH (16:30)
[2020-10-27] MEDS: THIAMINE HCL 100 MG TABLET (FP) PO SCH (21:36)
[2020-10-27] MEDS: MELATONIN 5 MG TABLETS PO SCH (21:36)
[2020-10-27] MEDS: QUEtiapine FUMARATE 100 MG TABLET (FP) PO SCH (21:37)
[2020-10-27] MEDS: SULFAMETHOXAZOLE/TRIMETHOPRIM 800MG/160MG D.S. TABLET PO SCH (21:37)
[2020-10-27] MEDS: LIDOCAINE PATCH REMOVAL MC SCH (21:38)
[2020-10-28] MEDS ORDERED: METHADONE HCL 10 MG TABLET ONE (05:56)
[2020-10-28] MEDS ORDERED: METHADONE HCL 40 MG DISPERSABLE TABLET ONE (05:56)
[2020-10-28] MEDS ORDERED: METHADONE HCL 10 MG TABLET PO SCH (06:00)
[2020-10-28] MEDS: METHADONE 120 MG, METHADONE 20 MG PO SCH (06:28)
[2020-10-28] MEDS: metFORMIN HCL 500 MG TABLET (FP) PO SCH ×3 (07:01→17:05)
[2020-10-28] MEDS: PRENATAL VITAMINS W/ FOLIC ACID TABLET (FP) PO SCH (10:01)
[2020-10-28] MEDS: ENALAPRIL MALEATE 10 MG TABLET PO SCH (10:02)
[2020-10-28] MEDS: LIDOCAINE 5% TOPICAL PATCH TP SCH (10:02)
[2020-10-28] MEDS: SULFAMETHOXAZOLE/TRIMETHOPRIM 800MG/160MG D.S. TABLET PO SCH ×2 (10:02→21:03)
[2020-10-28] MEDS: NICOTINE 14 MG/24 HOURS TOPICAL PATCH TD SCH (10:02)
[2020-10-28] MEDS: NICOTINE POLACRILEX 2 MG GUM BUC PRN ×2 (10:03→13:35)
[2020-10-28] MEDS: hydrOXYzine PAMOATE 25 MG CAPSULE (FP) PO PRN ×2 (10:03→21:03)
[2020-10-28] MEDS: COLLOIDAL OATMEAL 1 BAR EACH TP PRN (11:56)
[2020-10-28] MEDS: AMMONIUM LACTATE 12% LOTION 225 GM BOTTLE TP PRN (13:36)
[2020-10-28] MEDS ORDERED: PT OWN MED DRAWER 7, Y5N ONE (14:21)
[2020-10-28] MEDS: MAG HYDROX/AL HYDROX/SIMETH 30 ML UNIT-DOSE CUP PO PRN (17:05)
[2020-10-28] MEDS: MELATONIN 5 MG TABLETS PO SCH (21:03)
[2020-10-28] MEDS: QUEtiapine FUMARATE 100 MG TABLET (FP) PO SCH (21:03)
[2020-10-28] MEDS: THIAMINE HCL 100 MG TABLET (FP) PO SCH (21:03)
[2020-10-28] MEDS: LIDOCAINE PATCH REMOVAL MC SCH (21:04)
[2020-10-28] MEDS: SUVOREXANT 10 MG TABLET PO PRN (21:04)
[2020-10-29] MEDS ORDERED: METHADONE HCL 40 MG DISPERSABLE TABLET ONE (05:35)
[2020-10-29] MEDS ORDERED: METHADONE HCL 10 MG TABLET ONE (05:35)
[2020-10-29] MEDS: METHADONE 120 MG, METHADONE 20 MG PO SCH (06:07)
[2020-10-29] MEDS: AMMONIUM LACTATE 12% LOTION 225 GM BOTTLE TP PRN (06:08)
[2020-10-29] MEDS: NICOTINE POLACRILEX 2 MG GUM BUC PRN ×2 (06:38→16:39)
[2020-10-29] MEDS: metFORMIN HCL 500 MG TABLET (FP) PO SCH ×3 (07:24→16:37)
[2020-10-29] MEDS: hydrOXYzine PAMOATE 25 MG CAPSULE (FP) PO PRN ×2 (10:08→21:43)
[2020-10-29] MEDS: SULFAMETHOXAZOLE/TRIMETHOPRIM 800MG/160MG D.S. TABLET PO SCH ×2 (10:09→21:41)
[2020-10-29] MEDS: ENALAPRIL MALEATE 10 MG TABLET PO SCH (10:09)
[2020-10-29] MEDS: PRENATAL VITAMINS W/ FOLIC ACID TABLET (FP) PO SCH (10:09)
[2020-10-29] MEDS: ALBUTEROL SO4 HFA INHALER IH PRN (10:11)
[2020-10-29] MEDS ORDERED: PT OWN MED DRAWER 7, Y5N ONE (10:11)
[2020-10-29] MEDS: LIDOCAINE 5% TOPICAL PATCH TP SCH (10:12)
[2020-10-29] MEDS: NICOTINE 14 MG/24 HOURS TOPICAL PATCH TD SCH (10:12)
[2020-10-29] MEDS: MAGNESIUM HYDROX 2400MG/30ML ORAL SUSPENSION 30 ML CUP PO PRN (17:55)
[2020-10-29] MEDS: QUEtiapine FUMARATE 100 MG TABLET (FP) PO SCH (21:41)
[2020-10-29] MEDS: THIAMINE HCL 100 MG TABLET (FP) PO SCH (21:41)
[2020-10-29] MEDS: MELATONIN 5 MG TABLETS PO SCH (21:41)
[2020-10-29] MEDS: MAG HYDROX/AL HYDROX/SIMETH 30 ML UNIT-DOSE CUP PO PRN (21:42)
[2020-10-29] MEDS: SUVOREXANT 10 MG TABLET PO PRN (21:43)
[2020-10-29] MEDS: LIDOCAINE PATCH REMOVAL MC SCH (21:44)
[2020-10-29] MEDS: TOLNAFTATE 1% CREAM 15 GM TUBE TP SCH (21:44)
[2020-10-30] MEDS ORDERED: METHADONE HCL 10 MG TABLET ONE (05:02)
[2020-10-30] MEDS ORDERED: METHADONE HCL 40 MG DISPERSABLE TABLET ONE (05:02)
[2020-10-30] MEDS: METHADONE 120 MG, METHADONE 20 MG PO SCH (06:11)
[2020-10-30] MEDS: metFORMIN HCL 500 MG TABLET (FP) PO SCH ×3 (07:24→17:15)
[2020-10-30] MEDS: LIDOCAINE 5% TOPICAL PATCH TP SCH (10:42)
[2020-10-30] MEDS: hydrOXYzine PAMOATE 25 MG CAPSULE (FP) PO PRN (10:42)
[2020-10-30] MEDS: PRENATAL VITAMINS W/ FOLIC ACID TABLET (FP) PO SCH (10:42)
[2020-10-30] MEDS: SULFAMETHOXAZOLE/TRIMETHOPRIM 800MG/160MG D.S. TABLET PO SCH ×2 (10:42→21:11)
[2020-10-30] MEDS: NICOTINE 14 MG/24 HOURS TOPICAL PATCH TD SCH (10:42)
[2020-10-30] MEDS: ENALAPRIL MALEATE 10 MG TABLET PO SCH (10:42)
[2020-10-30] MEDS: TOLNAFTATE 1% CREAM 15 GM TUBE TP SCH ×2 (10:43→21:13)
[2020-10-30] MEDS: AMMONIUM LACTATE 12% LOTION 225 GM BOTTLE TP PRN (10:43)
[2020-10-30] MEDS: NICOTINE POLACRILEX 2 MG GUM BUC PRN ×2 (10:45→21:14)
[2020-10-30] MEDS ORDERED: PT OWN MED DRAWER 7, Y5N ONE (10:45)
[2020-10-30] MEDS: ALBUTEROL SO4 HFA INHALER IH PRN (10:46)
[2020-10-30] MEDS: COLLOIDAL OATMEAL 1 BAR EACH TP PRN (12:06)
[2020-10-30] MEDS: MAG HYDROX/AL HYDROX/SIMETH 30 ML UNIT-DOSE CUP PO PRN (17:15)
[2020-10-30] MEDS: MELATONIN 5 MG TABLETS PO SCH (21:11)
[2020-10-30] MEDS: QUEtiapine FUMARATE 100 MG TABLET (FP) PO SCH (21:11)
[2020-10-30] MEDS: THIAMINE HCL 100 MG TABLET (FP) PO SCH (21:11)
[2020-10-30] MEDS: SUVOREXANT 10 MG TABLET PO PRN (21:12)
[2020-10-30] MEDS: LIDOCAINE PATCH REMOVAL MC SCH (21:13)
[2020-10-31] MEDS ORDERED: METHADONE HCL 10 MG TABLET ONE (05:29)
[2020-10-31] MEDS ORDERED: METHADONE HCL 40 MG DISPERSABLE TABLET ONE (05:29)
[2020-10-31] MEDS: METHADONE 120 MG, METHADONE 20 MG PO SCH (06:50)
[2020-10-31] MEDS: AMMONIUM LACTATE 12% LOTION 225 GM BOTTLE TP PRN (06:52)
[2020-10-31] MEDS: NICOTINE POLACRILEX 2 MG GUM BUC PRN ×2 (06:53→14:14)
[2020-10-31] MEDS ORDERED: PT OWN MED DRAWER 7, Y5N ONE ×2 (06:54→08:44)
[2020-10-31] MEDS: metFORMIN HCL 500 MG TABLET (FP) PO SCH ×3 (07:17→16:56)
[2020-10-31] MEDS: hydrOXYzine PAMOATE 25 MG CAPSULE (FP) PO PRN (09:42)
[2020-10-31] MEDS: NICOTINE 14 MG/24 HOURS TOPICAL PATCH TD SCH (09:42)
[2020-10-31] MEDS: ENALAPRIL MALEATE 10 MG TABLET PO SCH (09:42)
[2020-10-31] MEDS: PRENATAL VITAMINS W/ FOLIC ACID TABLET (FP) PO SCH (09:42)
[2020-10-31] MEDS: LIDOCAINE 5% TOPICAL PATCH TP SCH (09:42)
[2020-10-31] MEDS: SULFAMETHOXAZOLE/TRIMETHOPRIM 800MG/160MG D.S. TABLET PO SCH ×2 (09:42→22:21)
[2020-10-31] MEDS: ALBUTEROL SO4 HFA INHALER IH PRN (09:45)
[2020-10-31] MEDS: TOLNAFTATE 1% CREAM 15 GM TUBE TP SCH ×2 (10:38→22:22)
[2020-10-31] MEDS: SUVOREXANT 10 MG TABLET PO PRN (22:21)
[2020-10-31] MEDS: MELATONIN 5 MG TABLETS PO SCH (22:22)
[2020-10-31] MEDS: THIAMINE HCL 100 MG TABLET (FP) PO SCH (22:22)
[2020-10-31] MEDS: LIDOCAINE PATCH REMOVAL MC SCH (22:22)
[2020-10-31] MEDS: QUEtiapine FUMARATE 100 MG TABLET (FP) PO SCH (22:30)
[2020-10-31] MEDS: MAGNESIUM HYDROX 2400MG/30ML ORAL SUSPENSION 30 ML CUP PO PRN (22:32)
[2020-11-01] MEDS ORDERED: METHADONE HCL 10 MG TABLET ONE (05:03)
[2020-11-01] MEDS ORDERED: METHADONE HCL 40 MG DISPERSABLE TABLET ONE (05:03)
[2020-11-01] MEDS ORDERED: PT OWN MED DRAWER 7, Y5N ONE (05:04)
[2020-11-01] MEDS: METHADONE 120 MG, METHADONE 20 MG PO SCH (06:44)
[2020-11-01] MEDS: AMMONIUM LACTATE 12% LOTION 225 GM BOTTLE TP PRN ×2 (06:44→10:00)
[2020-11-01] MEDS: NICOTINE POLACRILEX 2 MG GUM BUC PRN (06:47)
[2020-11-01] MEDS: metFORMIN HCL 500 MG TABLET (FP) PO SCH ×3 (08:18→16:33)
[2020-11-01] MEDS: PRENATAL VITAMINS W/ FOLIC ACID TABLET (FP) PO SCH (10:00)
[2020-11-01] MEDS: SULFAMETHOXAZOLE/TRIMETHOPRIM 800MG/160MG D.S. TABLET PO SCH ×2 (10:00→21:03)
[2020-11-01] MEDS: TOLNAFTATE 1% CREAM 15 GM TUBE TP SCH ×2 (10:00→21:04)
[2020-11-01] MEDS: hydrOXYzine PAMOATE 25 MG CAPSULE (FP) PO PRN ×3 (10:00→16:33)
[2020-11-01] MEDS: ALBUTEROL SO4 HFA INHALER IH PRN (10:01)
[2020-11-01] MEDS: LIDOCAINE 5% TOPICAL PATCH TP SCH (10:09)
[2020-11-01] MEDS: ENALAPRIL MALEATE 10 MG TABLET PO SCH (10:10)
[2020-11-01] MEDS: NICOTINE 14 MG/24 HOURS TOPICAL PATCH TD SCH (10:10)
[2020-11-01] MEDS ORDERED: AMMONIUM LACTATE 12% LOTION 225 GM BOTTLE TP PRN (10:47)
[2020-11-01] MEDS: GABAPENTIN 100 MG CAPSULE PO SCH ×2 (14:16→21:03)
[2020-11-01] MEDS ORDERED: MASKS NR ONE (18:08)
[2020-11-01] MEDS: QUEtiapine FUMARATE 100 MG TABLET (FP) PO SCH (21:03)
[2020-11-01] MEDS: SUVOREXANT 10 MG TABLET PO PRN (21:03)
[2020-11-01] MEDS: MELATONIN 5 MG TABLETS PO SCH (21:03)
[2020-11-01] MEDS: THIAMINE HCL 100 MG TABLET (FP) PO SCH (21:03)
[2020-11-01] MEDS: LIDOCAINE PATCH REMOVAL MC SCH (21:04)
[2020-11-02] MEDS ORDERED: METHADONE HCL 40 MG DISPERSABLE TABLET ONE (04:14)
[2020-11-02] MEDS ORDERED: METHADONE HCL 10 MG TABLET ONE (04:15)
[2020-11-02] MEDS: METHADONE 120 MG, METHADONE 20 MG PO SCH (06:48)
[2020-11-02] MEDS: GABAPENTIN 100 MG CAPSULE PO SCH ×3 (06:49→21:28)
[2020-11-02] MEDS: NICOTINE POLACRILEX 2 MG GUM BUC PRN ×3 (06:52→21:36)
[2020-11-02] MEDS: metFORMIN HCL 500 MG TABLET (FP) PO SCH ×3 (07:37→16:33)
[2020-11-02] MEDS: PRENATAL VITAMINS W/ FOLIC ACID TABLET (FP) PO SCH (10:15)
[2020-11-02] MEDS: ENALAPRIL MALEATE 10 MG TABLET PO SCH (10:15)
[2020-11-02] MEDS: hydrOXYzine PAMOATE 25 MG CAPSULE (FP) PO PRN ×3 (10:15→21:29)
[2020-11-02] MEDS: SULFAMETHOXAZOLE/TRIMETHOPRIM 800MG/160MG D.S. TABLET PO SCH ×2 (10:16→21:28)
[2020-11-02] MEDS: NICOTINE 14 MG/24 HOURS TOPICAL PATCH TD SCH (10:16)
[2020-11-02] MEDS: TOLNAFTATE 1% CREAM 15 GM TUBE TP SCH ×2 (10:16→21:29)
[2020-11-02] MEDS: LIDOCAINE 5% TOPICAL PATCH TP SCH (10:16)
[2020-11-02] MEDS: ALBUTEROL SO4 HFA INHALER IH PRN (10:17)
[2020-11-02] MEDS: IBUPROFEN 600 MG TABLET (FP) PO PRN ×2 (11:35→16:34)
[2020-11-02] MEDS: THIAMINE HCL 100 MG TABLET (FP) PO SCH (21:28)
[2020-11-02] MEDS: QUEtiapine FUMARATE 100 MG TABLET (FP) PO SCH (21:28)
[2020-11-02] MEDS: MELATONIN 5 MG TABLETS PO SCH (21:28)
[2020-11-02] MEDS: LIDOCAINE PATCH REMOVAL MC SCH (21:29)
[2020-11-03] MEDS ORDERED: METHADONE HCL 40 MG DISPERSABLE TABLET ONE (05:01)
[2020-11-03] MEDS ORDERED: METHADONE HCL 10 MG TABLET ONE (05:02)
[2020-11-03] MEDS: GABAPENTIN 100 MG CAPSULE PO SCH ×3 (06:36→21:13)
[2020-11-03] MEDS: METHADONE 120 MG, METHADONE 20 MG PO SCH (06:37)
[2020-11-03] MEDS: ALBUTEROL SO4 HFA INHALER IH PRN (06:41)
[2020-11-03] MEDS: NICOTINE POLACRILEX 2 MG GUM BUC PRN ×2 (06:41→09:52)
[2020-11-03] MEDS: metFORMIN HCL 500 MG TABLET (FP) PO SCH ×3 (07:51→18:07)
[2020-11-03] MEDS: ENALAPRIL MALEATE 10 MG TABLET PO SCH (09:47)
[2020-11-03] MEDS: TOLNAFTATE 1% CREAM 15 GM TUBE TP SCH ×2 (09:48→21:39)
[2020-11-03] MEDS: NICOTINE 14 MG/24 HOURS TOPICAL PATCH TD SCH (09:48)
[2020-11-03] MEDS: PRENATAL VITAMINS W/ FOLIC ACID TABLET (FP) PO SCH (09:48)
[2020-11-03] MEDS: LIDOCAINE 5% TOPICAL PATCH TP SCH (09:48)
[2020-11-03] MEDS: hydrOXYzine PAMOATE 25 MG CAPSULE (FP) PO PRN (09:48)
[2020-11-03] MEDS: SULFAMETHOXAZOLE/TRIMETHOPRIM 800MG/160MG D.S. TABLET PO SCH ×2 (09:48→21:10)
[2020-11-03] MEDS ORDERED: METHYL SALICYLATE/MENTHOL OINT 30 GM TUBE TP SCH (10:30)
[2020-11-03] MEDS: METHYL SALICYLATE/MENTHOL OINT 30 GM TUBE TP SCH ×2 (11:57→21:38)
[2020-11-03] MEDS: hydrOXYzine PAMOATE 50 MG CAPSULE (FP) PO PRN (14:02)
[2020-11-03] MEDS: QUEtiapine FUMARATE 100 MG TABLET (FP) PO SCH (21:10)
[2020-11-03] MEDS: LIDOCAINE PATCH REMOVAL MC SCH (21:11)
[2020-11-03] MEDS: MELATONIN 5 MG TABLETS PO SCH (21:11)
[2020-11-03] MEDS: MAG HYDROX/AL HYDROX/SIMETH 30 ML UNIT-DOSE CUP PO PRN (21:14)
[2020-11-03] MEDS: THIAMINE HCL 100 MG TABLET (FP) PO SCH (21:39)
[2020-11-03] MEDS ORDERED: SUVOREXANT 10 MG TABLET PO PRN (22:00)
[2020-11-04] MEDS ORDERED: METHADONE HCL 40 MG DISPERSABLE TABLET ONE (04:46)
[2020-11-04] MEDS ORDERED: METHADONE HCL 10 MG TABLET ONE (04:47)
[2020-11-04] MEDS: METHADONE 120 MG, METHADONE 20 MG PO SCH (05:51)
[2020-11-04] MEDS: GABAPENTIN 100 MG CAPSULE PO SCH (05:52)
[2020-11-04] MEDS: hydrOXYzine PAMOATE 50 MG CAPSULE (FP) PO PRN (05:54)
[2020-11-04] MEDS: metFORMIN HCL 500 MG TABLET (FP) PO SCH (07:08)
[2020-11-04 09:20] VITALS: BP 113/72; PULSE 97; TEMP 97
[2020-11-04] MEDS: PRENATAL VITAMINS W/ FOLIC ACID TABLET (FP) PO SCH (10:04)
[2020-11-04] MEDS: ENALAPRIL MALEATE 10 MG TABLET PO SCH (10:04)
[2020-11-04] MEDS: SULFAMETHOXAZOLE/TRIMETHOPRIM 800MG/160MG D.S. TABLET PO SCH (10:04)
[2020-11-04] MEDS: TOLNAFTATE 1% CREAM 15 GM TUBE TP SCH (10:05)
[2020-11-04] MEDS: NICOTINE 14 MG/24 HOURS TOPICAL PATCH TD SCH (10:05)
[2020-11-04] MEDS: METHYL SALICYLATE/MENTHOL OINT 30 GM TUBE TP SCH (10:06)
[2020-11-04] MEDS: ALBUTEROL SO4 HFA INHALER IH PRN (10:07)
[2020-11-04] MEDS: LIDOCAINE 5% TOPICAL PATCH TP SCH (10:08)
== END 2020-11-04 10:23 | disposition home or self-care (01) | DRG 772 ==
LOC: YASAS 11:03 → Y3W 11:04
PROVIDERS: ADMIT Allergy & Immunology; ATTEND Allergy & Immunology
PROC: HZ42ZZZ Group Counseling for Substance Abuse Treatment, Cognitive-Behavioral (ICD-10-PCS; principal; 2020-10-27)
DX: F10.20 Alcohol dependence, uncomplicated (principal); F11.20 Opioid dependence, uncomplicated; F13.20 Sedative, hypnotic or anxiolytic dependence, uncomplicated; F14.20 Cocaine dependence, uncomplicated; F17.210 Nicotine dependence, cigarettes, uncomplicated; F91.8 Other conduct disorders; F25.9 Schizoaffective disorder, unspecified; I10 Essential (primary) hypertension; E11.40 Type 2 diabetes mellitus with diabetic neuropathy, unspecified; Z79.84 Long term (current) use of oral hypoglycemic drugs; J45.909 Unspecified asthma, uncomplicated; K59.00 Constipation, unspecified; Z68.38 Body mass index [BMI] 38.0-38.9, adult
CPT/HCPCS: 82962; 93005; 93010

== ENCOUNTER 2021-03-11 12:42 | Inpatient (IN) | payer OTHER ==
[2021-03-11 13:32] VITALS: BMI 38.7
[2021-03-11] MEDS ORDERED: MAGNESIUM HYDROX 2400MG/30ML ORAL SUSPENSION 30 ML CUP PO PRN (17:18)
[2021-03-11] MEDS ORDERED: MAG HYDROX/AL HYDROX/SIMETH 30 ML UNIT-DOSE CUP PO PRN (17:18)
[2021-03-11] MEDS ORDERED: guaiFENesin 200 MG/10 ML 10 ML UNIT-DOSE CUPS PO PRN (17:18)
[2021-03-11] MEDS ORDERED: P-EPHED 60MG/TRIPROLIDI 2.5MG TABLET PO PRN (17:18)
[2021-03-11] MEDS ORDERED: IBUPROFEN 400 MG TABLET (FP) PO PRN (17:18)
[2021-03-11] MEDS ORDERED: MAGNESIUM CITRATE 300 ML BOTTLE PO PRN (17:18)
[2021-03-11] MEDS ORDERED: ACETAMINOPHEN 325 MG TABLET (FP) PO PRN (17:18)
[2021-03-11] MEDS ORDERED: LOPERAMIDE HCL 2 MG CAPSULE PO PRN (17:18)
[2021-03-11] MEDS ORDERED: ALBUTEROL SO4 HFA INHALER IH PRN (17:21)
[2021-03-11] MEDS: hydrOXYzine PAMOATE 25 MG CAPSULE (FP) PO SCH ×2 (19:10→21:11)
[2021-03-11] MEDS: MELATONIN 5 MG TABLETS PO SCH (21:10)
[2021-03-11] MEDS: THIAMINE HCL 100 MG TABLET (FP) PO SCH (21:10)
[2021-03-11] MEDS: BACITRACIN 0.9 GM PACKET TP SCH (21:11)
[2021-03-11] MEDS: CEPHALEXIN MONOHYDRATE 500 MG CAPSULE (UD) PO SCH (21:11)
[2021-03-12] MEDS: metFORMIN HCL 500 MG TABLET (FP) PO SCH ×2 (06:28→17:30)
[2021-03-12] MEDS: hydrOXYzine PAMOATE 25 MG CAPSULE (FP) PO SCH (06:28)
[2021-03-12] MEDS: CEPHALEXIN MONOHYDRATE 500 MG CAPSULE (UD) PO SCH ×3 (06:28→21:18)
[2021-03-12] MEDS ORDERED: METHADONE HCL 10 MG TABLET PO SCH (07:30)
[2021-03-12] MEDS: ENALAPRIL MALEATE 10 MG TABLET PO SCH (09:18)
[2021-03-12] MEDS: BACITRACIN 0.9 GM PACKET TP SCH ×2 (09:18→21:18)
[2021-03-12] MEDS: PRENATAL VITAMINS W/ FOLIC ACID TABLET (FP) PO SCH (09:19)
[2021-03-12] MEDS: NICOTINE POLACRILEX 2 MG GUM BC PRN (09:20)
[2021-03-12] MEDS: METHADONE 120 MG, METHADONE 30 MG PO SCH (09:30)
[2021-03-12 10:18] LABS: HEMATOCRIT 37.2 % (35.4-49); HEMOGLOBIN 12.5 GM/dL (11.7-16.9); MCH 28.3 pg (25.7-33.7); MCHC 33.6 g/dl (32.0-35.9); MEAN CELL VOLUME 84.4 fl (80-96); MEAN PLT VOLUME 9.9 fl (7.5-11.1); PLATELET COUNT 189 K/MM3 (134-434); RDW 15.3 % (11.9-15.9); WHITE BLOOD COUNT 6.1 K/mm3 (4.0-10.0)
[2021-03-12 10:29] LABS: ALBUMIN 3.1 g/dl (3.4-5.0); BLOOD UREA NITROGEN 13.2 mg/dL (7-18); CALCIUM 8.5 mg/dL (8.5-10.1)
[2021-03-12 10:33] LABS: BILIRUBIN,TOTAL 0.2 mg/dL (0.2-1)
[2021-03-12 10:34] LABS: TOT PROT 7.2 g/dl (6.4-8.2)
[2021-03-12] MEDS: hydrOXYzine PAMOATE 25 MG CAPSULE (FP) PO PRN ×2 (12:38→21:18)
[2021-03-12] MEDS: QUEtiapine FUMARATE 100 MG TABLET (FP) PO SCH (21:18)
[2021-03-12] MEDS: MELATONIN 5 MG TABLETS PO SCH (21:18)
[2021-03-12] MEDS: THIAMINE HCL 100 MG TABLET (FP) PO SCH (21:18)
[2021-03-12] MEDS ORDERED: SUVOREXANT 10 MG TABLET PO PRN (22:00)
[2021-03-13] MEDS ORDERED: METHADONE HCL 40 MG DISPERSABLE TABLET ONE (03:11)
[2021-03-13] MEDS ORDERED: METHADONE HCL 10 MG TABLET ONE (03:11)
[2021-03-13] MEDS: METHADONE 120 MG, METHADONE 30 MG PO SCH (06:38)
[2021-03-13] MEDS: CEPHALEXIN MONOHYDRATE 500 MG CAPSULE (UD) PO SCH ×3 (06:39→21:20)
[2021-03-13] MEDS: metFORMIN HCL 500 MG TABLET (FP) PO SCH ×2 (06:39→16:57)
[2021-03-13] MEDS: NICOTINE POLACRILEX 2 MG GUM BC PRN ×2 (07:08→13:05)
[2021-03-13] MEDS: PRENATAL VITAMINS W/ FOLIC ACID TABLET (FP) PO SCH (09:04)
[2021-03-13] MEDS: hydrOXYzine PAMOATE 25 MG CAPSULE (FP) PO PRN ×2 (09:05→13:05)
[2021-03-13] MEDS: BACITRACIN 0.9 GM PACKET TP SCH ×2 (09:05→21:19)
[2021-03-13] MEDS: ENALAPRIL MALEATE 10 MG TABLET PO SCH (09:05)
[2021-03-13] MEDS: MELATONIN 5 MG TABLETS PO SCH (21:19)
[2021-03-13] MEDS: THIAMINE HCL 100 MG TABLET (FP) PO SCH (21:19)
[2021-03-13] MEDS: QUEtiapine FUMARATE 100 MG TABLET (FP) PO SCH (21:20)
[2021-03-14] MEDS ORDERED: METHADONE HCL 10 MG TABLET ONE (03:22)
[2021-03-14] MEDS ORDERED: METHADONE HCL 40 MG DISPERSABLE TABLET ONE (03:22)
[2021-03-14] MEDS: NICOTINE POLACRILEX 2 MG GUM BC PRN (06:15)
[2021-03-14] MEDS: METHADONE 120 MG, METHADONE 30 MG PO SCH (07:05)
[2021-03-14] MEDS: metFORMIN HCL 500 MG TABLET (FP) PO SCH ×2 (07:06→16:53)
[2021-03-14] MEDS: CEPHALEXIN MONOHYDRATE 500 MG CAPSULE (UD) PO SCH ×3 (07:06→21:33)
[2021-03-14 07:26] VITALS: TEMP 97.3
[2021-03-14] MEDS ORDERED: PT OWN MED DRAWER 7, Y5N ONE (09:30)
[2021-03-14] MEDS: BACITRACIN 0.9 GM PACKET TP SCH ×2 (09:38→21:33)
[2021-03-14] MEDS: PRENATAL VITAMINS W/ FOLIC ACID TABLET (FP) PO SCH (09:38)
[2021-03-14] MEDS: ENALAPRIL MALEATE 10 MG TABLET PO SCH (09:38)
[2021-03-14] MEDS: hydrOXYzine PAMOATE 25 MG CAPSULE (FP) PO PRN ×2 (09:40→16:53)
[2021-03-14] MEDS: LIDOCAINE 5% TOPICAL PATCH TP SCH (13:27)
[2021-03-14 15:41] LABS: URINE APPEARANCE CLEAR; URINE BILIRUBIN NEGATIVE (NEGATIVE); URINE COLOR YELLOW; URINE GLUCOSE (UA) NEGATIVE (NEGATIVE); URINE KETONE NEGATIVE (NEGATIVE); URINE LEUK ESTERASE NEGATIVE (NEGATIVE); URINE NITRITE NEGATIVE (NEGATIVE); URINE PROTEIN NEGATIVE (NEGATIVE); URINE UROBILINOGEN 0.2 mg/dL (0.2-1.0)
[2021-03-14] MEDS: MELATONIN 5 MG TABLETS PO SCH (21:32)
[2021-03-14] MEDS: THIAMINE HCL 100 MG TABLET (FP) PO SCH (21:32)
[2021-03-14] MEDS: QUEtiapine FUMARATE 100 MG TABLET (FP) PO SCH (21:33)
[2021-03-14] MEDS: TOLNAFTATE 1% CREAM 15 GM TUBE TP SCH (21:36)
[2021-03-14] MEDS ORDERED: LIDOCAINE PATCH REMOVAL MC SCH (22:00)
[2021-03-15] MEDS ORDERED: METHADONE HCL 10 MG TABLET ONE (04:06)
[2021-03-15] MEDS ORDERED: METHADONE HCL 40 MG DISPERSABLE TABLET ONE (04:07)
[2021-03-15 06:06] LABS: SARS-CoV-2 NAA Not Detected (Not Detected)
[2021-03-15] MEDS: metFORMIN HCL 500 MG TABLET (FP) PO SCH (06:15)
[2021-03-15] MEDS: CEPHALEXIN MONOHYDRATE 500 MG CAPSULE (UD) PO SCH (06:16)
[2021-03-15] MEDS: METHADONE 120 MG, METHADONE 30 MG PO SCH (06:16)
[2021-03-15] MEDS: NICOTINE POLACRILEX 2 MG GUM BC PRN (06:17)
[2021-03-15 06:43] VITALS: BP 108/75; PULSE 86
[2021-03-15] MEDS ORDERED: PT OWN MED DRAWER 7, Y5N ONE (09:10)
[2021-03-15] MEDS: LIDOCAINE 5% TOPICAL PATCH TP SCH (09:26)
[2021-03-15] MEDS: ENALAPRIL MALEATE 10 MG TABLET PO SCH (09:26)
[2021-03-15] MEDS: BACITRACIN 0.9 GM PACKET TP SCH (09:26)
[2021-03-15] MEDS: PRENATAL VITAMINS W/ FOLIC ACID TABLET (FP) PO SCH (09:26)
[2021-03-15] MEDS: TOLNAFTATE 1% CREAM 15 GM TUBE TP SCH (09:26)
== END 2021-03-15 09:54 | disposition left against medical advice (07) | DRG 770 ==
LOC: YASAS 12:42 → Y3E 17:07
PROVIDERS: ADMIT Allergy & Immunology; ATTEND Allergy & Immunology
PROC: HZ42ZZZ Group Counseling for Substance Abuse Treatment, Cognitive-Behavioral (ICD-10-PCS; principal; 2021-03-11)
DX: F11.20 Opioid dependence, uncomplicated (principal); F10.20 Alcohol dependence, uncomplicated; F13.20 Sedative, hypnotic or anxiolytic dependence, uncomplicated; F14.20 Cocaine dependence, uncomplicated; F17.210 Nicotine dependence, cigarettes, uncomplicated; F25.9 Schizoaffective disorder, unspecified; F32.9 Major depressive disorder, single episode, unspecified; I10 Essential (primary) hypertension; J45.909 Unspecified asthma, uncomplicated; E11.9 Type 2 diabetes mellitus without complications; Z79.84 Long term (current) use of oral hypoglycemic drugs; K21.9 Gastro-esophageal reflux disease without esophagitis; B18.2 Chronic viral hepatitis C; L03.113 Cellulitis of right upper limb; L03.114 Cellulitis of left upper limb; Z62.810 Personal history of physical and sexual abuse in childhood; E66.9 Obesity, unspecified; Z68.38 Body mass index [BMI] 38.0-38.9, adult
CPT/HCPCS: 36415; 80053; 81003; 82962; 85027; 86780; C9803; U0003; U0005